=== PATIENT | male | born 1960 | race Caucasian/White ===

== ENCOUNTER 2016-03-20 15:54 | Inpatient (IN) | payer MEDICAID ==
--- NOTE | 2016-03-20 16:32 | ED Physician Chart ---
Chief Complaint/HPI - Patient Information Date Seen:: 03/20/16 Time Seen:: 16:10 Chief Complaint:: generalized weakness History of Present Illness:: patient got out of detention 2 hr ago. Doesn't remember why he was in detention but denies alcohol consumption. Complains of generalized weakness. Homeless for last two years. Non-compliant with high blood pressure medication. Allergies:: Allergies Allergy/AdvReac Type Severity Reaction Status Date / Time MDX Nkda - No Known Drug Allergy Verified 04/04/15 08:06 Allergies [Nkda - No Known Drug Allergies] Vitals:: Vital Signs - 8 hr 03/20/16 16:10 Temp 98.2 F HR 112 RR 16 BP 189/113 O2 Sat % 95 Historian:: Patient, EMS Review:: Nurse's Note Reviewed Review of Systems - Review of Systems General/Constitutional: No fever, No chills, Weakness Skin: No skin lesions Head: No headache Eyes: No loss of vision ENT: No earache Neck: No neck pain Cardio Vascular: No chest pain, No palpitations Pulmonary: No SOB GI: No nausea, No vomiting G/U: No dysuria Musculoskeletal: No bone or joint pain, No back pain Endocrine: No polyuria Hematopoietic: No lymphadenopathy Allergic/Immuno: Urticaria, No urticaria Neurological: No headache Past Medical History - Past Medical History Past Medical History: HTN, DM Family History: None Social History: Smoker, No Alcohol Surgical History: None Medication: None Family Medical History - Family Member Mother History Unknown: Yes Ethnicity: Non- Living Status: Unknown Physical Exam - Physical Examination General/Constitutional: No distress Other Gen/Cons comments:: mild chronically ill appearing Head: Atraumatic Eyes: Lids, conjuctiva normal Skin: Nl inspection ENMT: External ears, nose nl, Nasal exam nl Neck: No nuchal rigidity Other Respiratory comments:: diffuse expiratory wheezing Cardio Vascular: RRR, No murmur, gallop, rubs GI: No tenderness/rebounding/guarding : No CVA tenderness Extremities: No tenderness or effusion Neuro/Psych: Alert/oriented Misc: Normal back Labs/Radiology/EKG Results - Lab Results Results: Laboratory Results - last 24 hr 03/20/16 03/20/16 03/20/16 17:02 17:02 17:02 WBC 14.1 H D RBC 5.68 Hgb 14.9 Hct 45.6 MCV 80.3 MCH 26.3 MCHC Differential 32.7 RDW 14.0 Plt Count 336 MPV 8.6 Neutrophils % 86.0 H Lymphocytes % 8.3 L Monocytes % 4.8 Eosinophils % 0.7 Basophils % 0.2 Sodium 139 Potassium 4.2 Chloride 107 Carbon Dioxide 25.4 Anion Gap 10.8 BUN 29 H Creatinine 1.6 H Est GFR ( Amer) 58.2 Est GFR (Non-Af Amer) 48.1 BUN/Creatinine Ratio 18.1 Glucose 136 H Calcium 8.9 Magnesium 2.2 B-Natriuretic Peptide 613.0 H Ethyl Alcohol 03/20/16 17:02 WBC RBC Hgb Hct MCV MCH MCHC Differential RDW Plt Count MPV Neutrophils % Lymphocytes % Monocytes % Eosinophils % Basophils % Sodium Potassium Chloride Carbon Dioxide Anion Gap BUN Creatinine Est GFR ( Amer) Est GFR (Non-Af Amer) BUN/Creatinine Ratio Glucose Calcium Magnesium B-Natriuretic Peptide Ethyl Alcohol < 10 - Radiology Results Results: CXR: pulmonary congestion - EKG Interpretations Rhythm: sinus tach Johnson: normal Rate: 111 Assessment - Assessment General Assessment: 30 minutes critical care time ED Septic Shock - . Is Septic Shock (SBP<90, OR Lactate>4 mmol\L) present?: No - <6hrs of presentation: Vital Signs: Vital Signs - 8 hr 03/20/16 16:10 Temp 98.2 F HR 112 RR 16 BP 189/113 O2 Sat % 95 Reassessment (Disposition) - Reassessment Reassessment Condition:: Improved - Diagnosis Diagnosis:: congestive heart failure; hypertension - Patient Disposition Admitted to:: Telemetry Spoke to:: Micah Del Castillo Admitting Medical Physician:: Micah Del Castillo Condition at Disposition:: Unchanged
[2016-03-20 17:10] LABS: % BASOPHILS 0.2 % (0.0-2.0); % EOSINOPHILS 0.7 % (0.0-5.0); % LYMPHOCYTES 8.3 % (20.0-50.0); % MONOCYTES 4.8 % (2.0-10.0); HEMATOCRIT 45.6 % (39.0-49.0); HEMOGLOBIN 14.9 gm/dL (13.2-17.3); MEAN CELL VOLUME 80.3 fl (80-99); MEAN CORPUSCULAR HEMOGLOBIN 26.3 pg (26.0-30.0); MEAN CORPUSCULAR HGB CONC 32.7 pg (28.0-36.0); MEAN PLATELET VOLUME 8.6 fl; NEUTROPHILE ABSOLUTE 12.1 Th/cmm (1.8-8.0); PLATELET COUNT 336 Th/cmm (150-400); RED BLOOD COUNT 5.68 Mil/cmm (4.30-5.70)
[2016-03-20 17:17] LABS: WHITE BLOOD COUNT 14.1 Th/cmm (4.8-10.8)
[2016-03-20 17:20] LABS: ANION GAP 10.8 (7.0-16.0); BUN/CREATININE RATIO 18.1; CALCIUM SERUM 8.9 mg/dL (8.6-10.3); CARBON DIOXIDE 25.4 mEq/L (21.0-31.0); CREATININE - SERUM 1.6 mg/dL (0.7-1.3); MAGNESIUM 2.2 mg/dL (1.9-2.7); POTASSIUM SERUM 4.2 mEq/L (3.5-5.1)
[2016-03-20] MEDS ORDERED: Albuterol Nebulizer 2.5mg/3mL HHN ONE (19:22)
[2016-03-20] MEDS ORDERED: Ipratropium Neb 0.5 mg/2.5 mL UD HHN ONE (19:23)
[2016-03-20] MEDS ORDERED: NITROGLYCERIN SPRAY 4.9 GM SL STA (20:05)
[2016-03-20] MEDS ORDERED: Albuterol/Ipratropium Neb 3 ML AERS HHN ONE (20:07)
[2016-03-20] MEDS ORDERED: Albuterol Nebulizer 2.5mg/3mL HHN STA (20:48)
[2016-03-20] MEDS ORDERED: Ipratropium Neb 0.5 mg/2.5 mL UD HHN STA (20:48)
[2016-03-20 21:05] LABS: URINE BILIRUBIN NEGATIVE (NEGATIVE); URINE BLOOD NEGATIVE (NEGATIVE); URINE COLOR YELLOW; URINE GLUCOSE (UA) NEGATIVE (NEGATIVE); URINE KETONE NEGATIVE (NEGATIVE); URINE PH 5.5; URINE PROTEIN 100 mg/dL (NEGATIVE); URINE UROBILINOGEN 0.2 E.U./dL (0.2 - 1.0)
[2016-03-20 21:06] LABS: URINE BACTERIA NONE SEEN /hpf (NONE SEEN); URINE EPITHELIAL CELLS NONE SEEN /lpf (FEW); URINE RBC NONE SEEN /hpf (0-5); URINE WBC NONE SEEN /hpf (0-5)
[2016-03-20 22:25] LABS: AMPHETAMINE URINE POSITIVE (NEGATIVE); BARBITURATES URINE NEGATIVE (NEGATIVE)
--- NOTE | 2016-03-20 22:29 | Admit Criteria Form ---
Admit Criteria Forms - Admit Criteria Diagnosis: HYPERTENSION Clinical Indications for Admission to Inpatient Care ( Place "X" for any and all applicable criteria): Admission is indicated for ANY ONE of the following(1)(2)(3)(4): [ ]I. Hypertensive emergency, with evidence of acute and progressing target organ disease as indicated by ANY ONE of the following: [ ]a) Hypertensive encephalopathy (eg, confusion, altered mental status) [ ]b) Cerebral infarction [ ]c) Intracranial hemorrhage [ ]d) Myocardial ischemia or infarction [ ]e) Pulmonary edema [ ]f) Aortic dissection [ ]g) Seizure [ ]h) Acute renal insufficiency [ ]i) Papilledema [ ]j) Microangiopathic hemolytic anemia [ ]II. Adrenergic crisis (eg, severe hypertension due to pheochromocytoma crisis, cocaine or amphetamine intoxication, or clonidine withdrawal) [X]III. Severe hypertension (SBP greater than 180 mmHg or DBP greater than 110 mmHg or greater than the 95th percentile for age, gender, and height in pediatric patients) that cannot be controlled (eg, to SBP less than 160 mmHg and DBP less than 100 mmHg in adults) by treatment with oral medication in emergency department or observation care Extended stay beyond goal length of stay may be needed for(11)(12)(13): [ ]a) Persistent hypertensive encephalopathy [ ]b) Continuation of pulmonary edema [ ]c) Recurring or persistent severe hypertension [ ]d) Target organ damage (eg, angina, stroke, aortic dissection) [ ]e) Associated renal insufficiency The original [employer] content created by [employer] has been revised. The portions of the content which have been revised are identified through the use of italic text or in bold, and [facility] has neither reviewed nor approved the modified material. All other unmodified content is copyright [facility] Please see references footnoted in the original [facility] edition 2016 Admit Criteria Met?: Yes
[2016-03-20 23:59] VITALS: BP 150/110
[2016-03-21] MEDS: cefTRIAXone 1 GM in Sodium Chloride 0.9% 50 ML IV SCH (00:42)
[2016-03-21 06:40] LABS: % EOSINOPHILS 0.8 % (0.0-5.0); % LYMPHOCYTES 10.8 % (20.0-50.0); % MONOCYTES 4.9 % (2.0-10.0); % NEUTROPHILS 82.5 % (40.0-80.0); HEMATOCRIT 43.2 % (39.0-49.0); HEMOGLOBIN 14.3 gm/dL (13.2-17.3); MEAN CELL VOLUME 80.3 fl (80-99); MEAN CORPUSCULAR HEMOGLOBIN 26.6 pg (26.0-30.0); MEAN CORPUSCULAR HGB CONC 33.2 pg (28.0-36.0); MEAN PLATELET VOLUME 8.6 fl; NEUTROPHILE ABSOLUTE 9.7 Th/cmm (1.8-8.0); PLATELET COUNT 293 Th/cmm (150-400); RED BLOOD COUNT 5.38 Mil/cmm (4.30-5.70); RED CELL DISTRIBUTION WIDTH 13.9 % (11.5-20.0); WHITE BLOOD COUNT 11.8 Th/cmm (4.8-10.8)
[2016-03-21 06:45] LABS: ANION GAP 12.8 (7.0-16.0); BUN - UREA NITROGEN 27 mg/dL (7-25); CALCIUM SERUM 8.5 mg/dL (8.6-10.3); CARBON DIOXIDE 23.5 mEq/L (21.0-31.0); CHLORIDE 108 mEq/L (98-107); CREATININE - SERUM 1.5 mg/dL (0.7-1.3); GLUCOSE 137 mg/dL (70-105); POTASSIUM SERUM 4.3 mEq/L (3.5-5.1); SODIUM SERUM 140 mEq/L (136-145)
[2016-03-21 06:51] LABS: MAGNESIUM 2.2 mg/dL (1.9-2.7); URIC ACID 7.8 mg/dL (4.4-7.6)
[2016-03-21] MEDS: Albuterol Nebulizer 2.5mg/3mL HHN PRN ×3 (09:21→14:25)
[2016-03-21] MEDS: Enoxaparin 60 mg/0.6 mL 0.6mL Syr SUBQ SCH ×2 (12:54→20:53)
--- NOTE | 2016-03-21 13:23 | Diagnostic Imaging Report ---
Renal ultrasound HISTORY: Abnormal renal function test The right kidney is normal in size (10.3 x 4.9 x 5.6 cm). No focal lesions or hydronephrosis. The left kidney measures 12.2 x 5.5 x 5.6 cm. No focal lesions. No hydronephrosis. The exam of the urinary bladder demonstrates what appears to be an approximate 4.0 x 2.3 x 3.6 cm heterogeneous density encroaching on the floor region presumably related to enlarged prostate gland. In addition, an approximate 2.0 cm nonmobile density is noted along the posterior wall of the bladder. Etiology uncertain. A mucosal lesion cannot be excluded. IMPRESSION: 1. No focal renal lesions or hydronephrosis 2. Findings suggesting enlarged prostate gland with encroachment on the floor the urinary bladder 3. Approximate 2.0 cm nonmobile density that appears to be situated along the posterior wall of the bladder. Etiology uncertain. Mucosal lesion cannot be definitely excluded. Follow-up is recommended.
--- NOTE | 2016-03-21 13:24 | Diagnostic Imaging Report ---
Portable chest x-ray HISTORY hypertension The heart is enlarged. There is density in the right lower hemithorax. A pleural effusion cannot be excluded. Findings may be associated with congestive heart failure. Suggestion of a small left pleural effusion and haziness in the left lower lobe. IMPRESSION: 1. Cardiomegaly with suggestion of bilateral pleural effusions as noted above. Changes may be related to congestive heart failure. Underlying pneumonia cannot be excluded. Clinical correlation is needed.
--- NOTE | 2016-03-21 20:38 | Cardiology ---
The patient of Dr. Micah Del Castillo. M-MODE ECHOCARDIOGRAM: Mitral valve, anterior leaflet of the mitral valve shows decreased excursion, EF velocity. Posterior leaflet of mitral valve shows decreased excursion. Left ventricular posterior wall shows increased thickness, decreased excursion. Interventricular septum shows increased thickness, decreased excursion. There is hypertrophy of the left ventricle. Ejection fraction 20%. Left atrium enlarged at 4.8 cm. Aortic root shows normal dimension and normal excursion of aortic leaflets. CONCLUSION: Cardiomyopathy, ejection fraction 20%, hypertrophy of the left ventricle, left atrial enlargement. 2D ECHO: Long-axis view shows enlarged left ventricular cavity with decreased ejection fraction, hypertrophy of the left ventricle. Left atrium enlarged. Aortic root shows normal dimension, normal excursion of aortic leaflets. Short-axis view of mitral valve normal. Short-axis view of aortic valve normal. Apical four-chamber view shows enlarged left ventricular cavity with decreased ejection fraction, hypertrophy of the left ventricle, and left atrium, enlarged right ventricular cavity, right atrium normal, no pericardial effusion. CONCLUSION: Hypertrophy of the left ventricle, cardiomyopathy, ejection fraction 30%, and left atrial enlargement. Doppler study shows prominent area consistent with poor compliance of left ventricle. Trace tricuspid regurgitation and trace mitral regurgitation, moderate pulmonary regurgitation. JOB# [id number]
[2016-03-22] MEDS: cefTRIAXone 1 GM in Sodium Chloride 0.9% 50 ML IV SCH ×2 (00:59→23:07)
--- NOTE | 2016-03-22 02:39 | Consultation ---
ATTENDING PHYSICIAN: Micah Del Castillo M.D. REASON FOR CONSULTATION: Elevated BUN and creatinine. HISTORY OF PRESENT ILLNESS: The patient is a 55-year-old male with a history of diabetes, hypertension and homelessness, who just got out of [facility], came into the Emergency Room complaining of generalized weakness and shortness of breath. He was found to have congestive heart failure exacerbation and hypertension out of control with cellulitis, so he is admitted. His BUN and creatinine were found to be elevated, so I am called in consultation, as I am covering for Dr. Timothy Gaines. PAST MEDICAL HISTORY: Significant for diabetes and hypertension, he does not know how long. FAMILY HISTORY: Noncontributory. SOCIAL HISTORY: The patient uses drugs, smokes cigarettes, does not drink. ALLERGIES: No known drug allergies. MEDICATIONS: The patient was not taking any medications. REVIEW OF SYSTEMS: As in History of Present Illness. All other systems reviewed and found to be negative. PHYSICAL EXAMINATION: VITAL SIGNS: His blood pressure is 189/113, temperature is 98.2, pulse 112, respirations 16. HEENT: Normocephalic, atraumatic. Pupils are equal, round, reacting to light and accommodation. Extraocular movements are intact. CARDIOVASCULAR: S1, S2 head. Tachycardic. LUNGS: Bilateral expiratory wheezes. ABDOMEN: Soft. No hepatosplenomegaly. EXTREMITIES: There is no cyanosis, clubbing. There is 1+ pedal edema. NEUROLOGIC: Cranial nerves II through XII are intact with no focal deficit. LABORATORY DATA: WBC 11.8, hemoglobin 14.3, hematocrit 43.2, platelet count is 293,000. Sodium 140, potassium 4.3, chloride 108, bicarbonate 23, BUN 27, creatinine 1.5, glucose 137, uric acid 7.8, calcium 8.5, magnesium 2.2, troponin 0.15. Urinalysis is clear. Toxicology screen positive for amphetamines. Alcohol is less than 10. ASSESSMENT AND PLAN: 1. This is most likely acute renal failure versus there is a possibility of underlying chronic renal failure due to diabetes. We will check 24-hour urine and renal ultrasound, give dopamine if heart rate comes down. 2. Diabetes mellitus, cover with sliding scale insulin. 3. Congestive heart failure exacerbation versus chronic obstructive pulmonary disease exacerbation, on breathing treatments and diuretics. 4. Hypertension. Continue antihypertensive medications. Thank you very much for the privilege of consulting on your patient, Dr. Del Castillo. JOB# [id number]
[2016-03-22 07:12] LABS: % BASOPHILS 0.2 % (0.0-2.0); % EOSINOPHILS 0.9 % (0.0-5.0); % LYMPHOCYTES 13.4 % (20.0-50.0); % MONOCYTES 6.5 % (2.0-10.0); HEMATOCRIT 46.1 % (39.0-49.0); HEMOGLOBIN 15.1 gm/dL (13.2-17.3); MEAN CELL VOLUME 80.8 fl (80-99); MEAN CORPUSCULAR HEMOGLOBIN 26.5 pg (26.0-30.0); MEAN CORPUSCULAR HGB CONC 32.8 pg (28.0-36.0); MEAN PLATELET VOLUME 9.1 fl; NEUTROPHILE ABSOLUTE 10.8 Th/cmm (1.8-8.0); PLATELET COUNT 340 Th/cmm (150-400); WHITE BLOOD COUNT 13.6 Th/cmm (4.8-10.8)
--- NOTE | 2016-03-22 07:18 | Consultation ---
Covering for Dr. Nolen. IDENTIFYING INFORMATION: The patient is a 55-year-old male. HISTORY OF PRESENT ILLNESS: ____ of hypertension. He has severe hypertension. When I talked to the patient, he was not a very reliable historian; however, he denies any prior psychiatric treatment. He denies feeling depressed. He was unable to tell me the date. He felt he was 56 years of age. He was not sure of the exact date of his birthday. He reports he sleeps well, eats well. Denies any anxiety or depression. He denies any current substance abuse, though he reports he used to use alcohol and drugs in the past, but he quit long time ago, unable to give me more detailed information. PAST PSYCHIATRIC HISTORY: No prior psychiatric treatment. Prior history of substance abuse, but he has quit long time ago. No prior suicide attempt. Never been on psychotropic medications. MEDICAL HISTORY: Deferred to the medical doctor. FAMILY AND SOCIAL HISTORY: The patient reports he is single, never , no children. He reports that he lives by himself and that there is no family history of psychotic disorder or substance abuse. He reports he has [employer] school education. He used to work as a aircraft armament mechanic. MENTAL STATUS EXAMINATION: The patient was alert. He reported he felt terrible. He knows this is the weekend, but he is not sure exactly what month, what year, where he is, why he is here. Unable to test his memory because he was feeling bad and was uncooperative. His insight and judgment are questionable at this stage. He denies any intent to harm himself, not feeling paranoid, hallucinations or paranoia. IMPRESSION: AXIS I: Rule out delirium secondary to his medical condition versus cognitive disorder, not otherwise specified. PLAN: I would recommend to the patient that probably his medical condition will improves as his psychiatric condition improves. His confusion will improve as his medical condition improves. The patient needs followup with the psychiatrist upon discharge. However, if he gets agitated, he can use the Risperdal 0.5 mg twice a day as needed. So far, he has not been reported to be agitated. Thank you very much for allowing me to participate in the care of this most interesting gentleman. JOB# [id number]
[2016-03-22 07:49] LABS: ANION GAP 10.6 (7.0-16.0); BUN - UREA NITROGEN 29 mg/dL (7-25); BUN/CREATININE RATIO 20.7; CALCIUM SERUM 8.7 mg/dL (8.6-10.3); CARBON DIOXIDE 24.6 mEq/L (21.0-31.0); CHLORIDE 110 mEq/L (98-107); CREATININE - SERUM 1.4 mg/dL (0.7-1.3); GLUCOSE 121 mg/dL (70-105); POTASSIUM SERUM 4.2 mEq/L (3.5-5.1); SODIUM SERUM 141 mEq/L (136-145)
[2016-03-22] MEDS: Albuterol Nebulizer 2.5mg/3mL HHN PRN (08:53)
[2016-03-22] MEDS: Azithromycin 500 MG in Sodium Chloride 0.9% 250 ML IV SCH (08:59)
[2016-03-22] MEDS: Enoxaparin 60 mg/0.6 mL 0.6mL Syr SUBQ SCH ×2 (09:02→23:08)
[2016-03-22] MEDS ORDERED: Albuterol Nebulizer 2.5mg/3mL HHN PRN (09:21)
--- NOTE | 2016-03-22 10:15 | Diagnostic Imaging Report ---
Portable chest x-ray HISTORY: Shortness of breath, congestive heart failure Compared with prior exam of 03/21/2016, the heart remains enlarged. Evidence of persistent bilateral pleural effusions. IMPRESSION: 1. No change in cardiomegaly with evidence of bilateral pleural effusions probably associated with congestive heart failure.
[2016-03-22 12:28] LABS: ABG SOURCE Arterial; ALLEN TEST YES; BE(B) 1.3 mmol/L (-3.0-3.0); HCO3 27.6 mmol/L (20.0-26.0); pH 7.35 (7.35-7.45)
[2016-03-22 12:29] LABS: CRITICAL VALUES REPORTED BY SH; FIO2 28
[2016-03-22 14:15] LABS: TOTAL PROTEIN 24 HR URINE 430.5 mg/24 hr (0-165)
[2016-03-22] MEDS: Albuterol Nebulizer 2.5mg/3mL HHN SCH (14:42)
--- NOTE | 2016-03-22 17:40 | General Progress Note ---
Subjective - Review of Systems Service Date: 03/22/16 Subjective: Patient seen and examined feels better sob better family was at the bedside pt denied chest pain or dizziness or palpitation or any other complaints Objective - Results Result Diagrams: 03/22/16 05:48 03/22/16 05:48 Recent Labs: Laboratory Last Values WBC 13.6 Th/cmm (4.8-10.8) H 03/22/16 05:48 RBC 5.70 Mil/cmm (4.30-5.70) 03/22/16 05:48 Hgb 15.1 gm/dL (13.2-17.3) 03/22/16 05:48 Hct 46.1 % (39.0-49.0) 03/22/16 05:48 MCV 80.8 fl (80-99) 03/22/16 05:48 MCH 26.5 pg (26.0-30.0) 03/22/16 05:48 MCHC Differential 32.8 pg (28.0-36.0) 03/22/16 05:48 RDW 14.0 % (11.5-20.0) 03/22/16 05:48 Plt Count 340 Th/cmm (150-400) 03/22/16 05:48 MPV 9.1 fl 03/22/16 05:48 Neutrophils % 79.0 % (40.0-80.0) 03/22/16 05:48 Lymphocytes % 13.4 % (20.0-50.0) L 03/22/16 05:48 Monocytes % 6.5 % (2.0-10.0) 03/22/16 05:48 Eosinophils % 0.9 % (0.0-5.0) 03/22/16 05:48 Basophils % 0.2 % (0.0-2.0) 03/22/16 05:48 Specimen Source Arterial 03/22/16 11:58 Sample Site Right Radial 03/22/16 11:58 pH 7.35 (7.35-7.45) 03/22/16 11:58 pCO2 50.0 mmHg (35.0-45.0) H 03/22/16 11:58 pO2 72.0 mmHg (80.0-100.0) L 03/22/16 11:58 HCO3 27.6 mmol/L (20.0-26.0) H 03/22/16 11:58 Base Excess 1.3 mmol/L (-3.0-3.0) 03/22/16 11:58 O2 Saturation 93.0 % (92.0-100.0) 03/22/16 11:58 Alexis Test YES 03/22/16 11:58 Vent Rate NA 03/22/16 11:58 Inspired O2 28 03/22/16 11:58 Tidal Volume NA 03/22/16 11:58 PEEP NA 03/22/16 11:58 Pressure (ins/psv/peep) NA 03/22/16 11:58 Critical Value SH 03/22/16 11:58 Sodium 141 mEq/L (136-145) 03/22/16 05:48 Potassium 4.2 mEq/L (3.5-5.1) 03/22/16 05:48 Chloride 110 mEq/L (98-107) H 03/22/16 05:48 Carbon Dioxide 24.6 mEq/L (21.0-31.0) 03/22/16 05:48 Anion Gap 10.6 (7.0-16.0) 03/22/16 05:48 BUN 29 mg/dL (7-25) H 03/22/16 05:48 Creatinine 1.4 mg/dL (0.7-1.3) H 03/22/16 05:48 Est GFR ( Amer) > 60.0 ml/min (>90) 03/22/16 05:48 Est GFR (Non-Af Amer) 56.1 ml/min 03/22/16 05:48 BUN/Creatinine Ratio 20.7 03/22/16 05:48 Glucose 121 mg/dL (70-105) H 03/22/16 05:48 Uric Acid 7.8 mg/dL (4.4-7.6) H 03/21/16 05:40 Calcium 8.7 mg/dL (8.6-10.3) 03/22/16 05:48 Magnesium 2.2 mg/dL (1.9-2.7) 03/21/16 05:40 Troponin I 0.12 ng/mL (0.01-0.05) H* D 03/21/16 13:44 B-Natriuretic Peptide 857.0 pg/mL (5.0-100.0) H 03/22/16 05:48 Urine Source CLEAN C 03/20/16 20:10 Urine Color YELLOW 03/20/16 20:10 Urine Clarity CLEAR (CLEAR) 03/20/16 20:10 Urine pH 5.5 03/20/16 20:10 Ur Specific [place] 1.025 (1.005-1.030) 03/20/16 20:10 Urine Protein 100 mg/dL (NEGATIVE) H 03/20/16 20:10 Urine Glucose (UA) NEGATIVE mg/dL (NEGATIVE) 03/20/16 20:10 Urine Ketones NEGATIVE mg/dL (NEGATIVE) 03/20/16 20:10 Urine Blood NEGATIVE (NEGATIVE) 03/20/16 20:10 Urine Nitrate NEGATIVE (NEGATIVE) 03/20/16 20:10 Urine Bilirubin NEGATIVE (NEGATIVE) 03/20/16 20:10 Urine Urobilinogen 0.2 E.U./dL (0.2 - 1.0) 03/20/16 20:10 Ur Leukocyte Esterase NEGATIVE (NEGATIVE) 03/20/16 20:10 Urine RBC NONE SEEN /hpf (0-5) 03/20/16 20:10 Urine WBC NONE SEEN /hpf (0-5) 03/20/16 20:10 Ur Epithelial Cells NONE SEEN /lpf (FEW) 03/20/16 20:10 Urine Bacteria NONE SEEN /hpf (NONE SEEN) 03/20/16 20:10 U Random Total Protein 41.0 mg/dL 03/22/16 12:00 Urine Collection Time 24 hours 03/22/16 12:00 Urine Total Volume 1050 ml 03/22/16 12:00 U Tot Protein 24h, Calc 430.5 mg/24 hr (0-165) H 03/22/16 12:00 Urine Opiates Screen NEGATIVE (NEGATIVE) 03/20/16 20:10 Ur Barbiturates Screen NEGATIVE (NEGATIVE) 03/20/16 20:10 Ur Phencyclidine Scrn NEGATIVE (NEGATIVE) 03/20/16 20:10 Amphetamines Screen POSITIVE (NEGATIVE) H 03/20/16 20:10 U Methamphetamines Scrn POSITIVE (NEGATIVE) H 03/20/16 20:10 U Benzodiazepines Scrn NEGATIVE (NEGATIVE) 03/20/16 20:10 U Cocaine Metab Screen NEGATIVE (NEGATIVE) 03/20/16 20:10 U Cannabinoids Screen NEGATIVE (NEGATIVE) 03/20/16 20:10 Ethyl Alcohol < 10 mg/dL (0-10) 03/20/16 17:02 - Physical Exam Vitals and I&O: Vital Signs Temp 97.3 F 03/22/16 16:00 Pulse 91 03/22/16 17:15 Resp 17 03/22/16 16:00 BP 181/122 03/22/16 17:15 Pulse Ox 92 03/22/16 16:00 Intake & Output 03/21/16 03/22/16 03/22/16 18:59 06:59 18:59 Intake Total 6500 360 Output Total 300 Balance 6500 60 Weight (lbs) 119.93 kg Intake: Oral 6500 360 Output: Urine 300 Other: # Voids 5 # Bowel Movements 0 0 Active Medications: Current Medications Albuterol Sulfate (Albuterol 2.5mg/3ml Neb Ud) 2.5 mg HHN Q4HRT [facility] Stop: 05/21/16 10:59 Last Admin: 03/22/16 14:42 Dose: 2.5 mg Albuterol Sulfate (Albuterol 2.5mg/3ml Neb Ud) 2.5 mg HHN Q2HRT PRN PRN Reason: Shortness of Breath Stop: 05/21/16 09:20 Last Admin: 03/22/16 10:32 Dose: 2.5 mg Albuterol/Ipratropium (Duoneb Neb) 3 ml HHN [id number] [facility] Stop: 05/21/16 18:59 Aspirin (Ecotrin) 81 mg PO DAILY [facility] Stop: 05/20/16 08:59 Last Admin: 03/22/16 09:02 Dose: 81 mg Budesonide (Pulmicort) 0.5 mg HHN BIDRT [facility] Stop: 05/21/16 18:59 Clonidine HCl (Catapres) 0.1 mg PO Q6H PRN PRN Reason: SBP > 160 Stop: 05/19/16 21:44 Last Admin: 03/22/16 17:14 Dose: 0.1 mg Enoxaparin Sodium (Lovenox) 120 mg SUBQ Q12HR [facility] Stop: 05/20/16 11:59 Last Admin: 03/22/16 09:02 Dose: 120 mg Furosemide (Lasix) 20 mg IVP DAILY [facility] Stop: 05/22/16 08:59 Ceftriaxone Sodium 1 gm/ (Sodium Chloride) 50 mls @ 100 mls/hr IV Q24H [facility] Stop: 05/19/16 22:59 Last Admin: 03/22/16 00:59 Dose: 100 mls/hr Azithromycin 500 mg/ Sodium (Chloride) 250 mls @ 250 mls/hr IV Q24HR [facility] Stop: 05/21/16 07:44 Last Admin: 03/22/16 08:59 Dose: 250 mls/hr Losartan Potassium (Cozaar) 50 mg PO DAILY [facility] Stop: 05/20/16 17:59 Last Admin: 03/22/16 09:02 Dose: 50 mg Metoprolol Tartrate (Lopressor) 50 mg PO BID [facility] Stop: 05/20/16 16:59 Last Admin: 03/22/16 17:15 Dose: 50 mg General: Alert Cardiovascular: Regular rate Lungs: Other (rales noted) Abdomen: Soft Extremities: Other (bilateral feet onychomycosis noted) Assessment/Plan - Problem List Patient Problems: All Active Problems GENERALIZED WEAKNESS (Acute ~03/20/16) Diabetes mellitus (Acute) E11.9 High cholesterol (Acute) E78.0 Homeless (Acute) Z59.0 Hypertensive encephalopathy (Acute) I67.4 Severe hypertension (Acute) I10 Unstable angina (Acute) - Assessment Assessment: CHF ( systolic heart failure) Cardiomyopathy Methamphetamine abuse COPD exacerbation Obesity Elevated troponin possibly related to CHF HTN - Plan Plan: IV Lasix Beta kendall Lovenox Frequent HHN Oxygen IV rocephine Solumedrol Monitor vitals Highly advised to stop cigarette and Methamphetamine use Cardiology and Pulmonary following Follow up chest xray and labs in am Family was updated on pts condition Plan of care discussed with patient and nursing staff
--- NOTE | 2016-03-22 19:22 | Consultation ---
The patient is a patient of Dr. Del Castillo. HISTORY AND PHYSICAL: This is a 55-year-old male patient who was brought to the hospital because of generalized weakness. The patient left the custodial about 2 hours ago. The patient does not remember why he was in the custodial. The patient does have minimal swelling in both lower extremities and minimal shortness of breath. OBJECTIVE: VITAL SIGNS: Blood pressure 120/70, pulse 100 and respirations 28. HEAD: Normocephalic. No lumps or bumps. EYES: Pupils equal, reactive to light. Fundi show AV nicking, sclerae white, conjunctivae pink. NECK: Carotid 2+. Normal upstroke. JVD 10 cm above the sternal angle. Thyroid not palpable. Lymph nodes not palpable. CHEST: Shows increased AP diameter. No kyphosis or scoliosis. LUNGS: Bilateral rales. Decreased breath sounds in both the bases. HEART: PMI sixth intercostal space with [id number] line. S1, S2, S3, S4, soft systolic murmur. ABDOMEN: Soft, hepatojugular reflux, positive bowel sounds active. RECTAL: Prostate enlarged. EXTREMITIES: Peripheral pulses 1+, pedal edema 2+. CLINICAL IMPRESSION: Congestive heart failure, systolic dysfunction, cardiomyopathy, methamphetamine addict. Diabetes mellitus type 2, hypertension and diabetic CKD, stage III. PLAN: The patient to be started on beta kendall, diuretics, preload, afterload reduction. The patient's echocardiogram showed ejection fraction of 20%. JOB# [id number]
[2016-03-22] MEDS: Budesonide 0.5 Mg/2 mL Ud HHN SCH (19:38)
[2016-03-22] MEDS: Albuterol/Ipratropium Neb 3 ML AERS HHN SCH (19:38)
[2016-03-23] MEDS: Albuterol/Ipratropium Neb 3 ML AERS HHN SCH ×4 (06:57→20:37)
[2016-03-23] MEDS: Budesonide 0.5 Mg/2 mL Ud HHN SCH ×2 (06:58→20:38)
[2016-03-23 07:53] LABS: HEMATOCRIT 44.2 % (39.0-49.0); HEMOGLOBIN 14.5 gm/dL (13.2-17.3); MEAN CELL VOLUME 80.3 fl (80-99); MEAN CORPUSCULAR HEMOGLOBIN 26.4 pg (26.0-30.0); MEAN CORPUSCULAR HGB CONC 32.9 pg (28.0-36.0); MEAN PLATELET VOLUME 9.3 fl; PLATELET COUNT 329 Th/cmm (150-400); RED BLOOD COUNT 5.51 Mil/cmm (4.30-5.70); RED CELL DISTRIBUTION WIDTH 14.2 % (11.5-20.0); WHITE BLOOD COUNT 13.6 Th/cmm (4.8-10.8)
[2016-03-23 08:27] LABS: ALB/GLOB RATIO 1.2 (1.0-1.8); ALKALINE PHOSPHATASE 122 U/L (34-104); ANION GAP 10.1 (7.0-16.0); BILIRUBIN,TOTAL 0.6 mg/dL (0.3-1.0); BUN - UREA NITROGEN 33 mg/dL (7-25); BUN/CREATININE RATIO 23.6; CALCIUM SERUM 8.8 mg/dL (8.6-10.3); CARBON DIOXIDE 25.9 mEq/L (21.0-31.0); CHLORIDE 106 mEq/L (98-107); CREATININE - SERUM 1.4 mg/dL (0.7-1.3); GLUCOSE 140 mg/dL (70-105); SGOT 29 U/L (13-39); SGPT/ALT 68 U/L (7-52); SODIUM SERUM 138 mEq/L (136-145)
[2016-03-23 08:28] LABS: TSH 1.24 uIU/ml (0.34-5.60)
--- NOTE | 2016-03-23 08:56 | Diagnostic Imaging Report ---
CT scan of the chest without intravenous contrast HISTORY: Shortness of breath Total DLP equals 335 CTDI equals 9.4 Axial sections were obtained from a level above the clavicles down to level below the diaphragm. The heart is enlarged. Pericardial effusion is noted. Normal-sized lymph nodes are seen within the mediastinum. There are bilateral pleural effusions (right greater than left). Extensive consolidation noted in the right and left lower lobe regions. Changes may be associated with congestive heart failure. Underlying pneumonia cannot be excluded. IMPRESSION: 1. Cardiomegaly with evidence of a pericardial effusion 2. Bilateral pleural effusions (right greater than left). 3. Bilateral pulmonary parenchymal changes within the lower lobes. The findings may be associated with congestive heart failure. Underlying pneumonia cannot be excluded. Clinical correlation is needed.
[2016-03-23] MEDS ORDERED: NIFEdipine 30 mg ER Tab PO SCH (09:00)
[2016-03-23] MEDS: Azithromycin 500 MG in Sodium Chloride 0.9% 250 ML IV SCH (09:16)
--- NOTE | 2016-03-23 09:26 | Progress Notes ---
Case was discussed with staff of the patient, reviewed records. The patient was found to have urine drug screen positive for amphetamines and that may explain the increase in blood pressure. He also was reported to be somewhat paranoid. I discussed that with the patient. The patient is in denial that he was abusing any drugs; however, he does have a history. Anyway, he reports he is feeling better today. He denies any current intent to harm himself or anybody. He denies any auditory or visual hallucination or paranoia. Today, he is compliant with the medication with no side effects, no sedation, no nausea, no extrapyramidal symptoms. The patient needs followup with the psychiatrist upon discharge and a ____ program. Sleeping well, eating well. Seems to be much calmer and cooperative. Thank you very much for allowing me to participate in the care of this most interesting gentleman. JOB# [id number]
[2016-03-23 09:33] LABS: ABG SOURCE Arterial; ALLEN TEST YES; BE(B) 3.3 mmol/L (-3.0-3.0); HCO3 29.1 mmol/L (20.0-26.0); pH 7.39 (7.35-7.45)
[2016-03-23 09:34] LABS: CRITICAL VALUES REPORTED BY SH; FIO2 21
[2016-03-23] MEDS: Enoxaparin 60 mg/0.6 mL 0.6mL Syr SUBQ SCH ×2 (10:18→21:45)
[2016-03-23 10:53] LABS: NEUTROPHILS 82 % (40-80); PLATELET ESTIMATE ADEQUATE (NORMAL); PLATELET MORPHOLOGY NORMAL (NORMAL); TOTAL CELLS COUNTED 100
[2016-03-23] MEDS: cefTRIAXone 1 GM in Sodium Chloride 0.9% 100 ML IV SCH (13:02)
--- NOTE | 2016-03-23 15:21 | Consultation ---
REASON FOR CONSULTATION: Help patient with shortness of breath. HISTORY OF PRESENT ILLNESS: This is a 55-year-old gentleman "homeless," was just discharged from the nursing home and apparently two days after started having more shortness of breath, coughing and wheezing, subsequently felt extremely weak and came to the hospital for further care and necessary treatment. Apparently, the patient was thought to be in heart failure with possibly pneumonia and I was asked to see this patient for further care and necessary treatment. The patient has had morning coughing, no hemoptysis. No pleuritic chest pain. Lately has got more swollen up, though he says he may loss weight. No wheezing. No hemoptysis does not recall of any fever. PAST MEDICAL HISTORY: History of hypertension, diabetic mellitus, questionable history of snoring and sleep apnea syndrome. ALLERGIES: Nil. SOCIAL HISTORY: Smoking history more than 30-40 pack year smoker, still smokes till prior to coming to the hospital. Alcohol seems to be very heavy. ____ drink a lot, but lately has not been drinking. PAST SURGICAL HISTORY: Noncontributory. PHYSICAL FINDINGS: GENERAL: This is a middle-aged fairly built gentleman, awake, alert, oriented, sitting at the edge of the bed, no respiratory distress. VITAL SIGNS: Temperature is 96, heart rate is 80, respiration rate is low 20s, saturation is 97% on 2 liters of oxygen. HEENT: Examination of the head is essentially unremarkable. Pupils appear to be equal and reacting to light. Conjunctivae are slightly pallor. Oral cavity shows small oropharyngeal hygiene with poor dental hygiene. NECK: Veins are not visualized, lot of ____, cannot see the neck veins. CHEST: Shows diminished air entry. No other adventitious breath sounds with occasional rhonchi. HEART: Regular. ABDOMEN: Slightly protuberant, soft, nontender. LABORATORY DATA: White count is 13.6. ABG shows compensated respiratory acidemia. Electrolytes, creatinine is 1.4, BUN is 27 and the patient's chest x-ray shows huge cardiomegaly with bilateral effusion and a CT of the chest done shows there is moderate effusion and more right than the left with some ____ atelectasis with questionable pneumonia infiltrate. ASSESSMENT: The patient clinically is in acute respiratory failure, most likely this is related to congestive heart failure, cardiomyopathy with bilateral effusion, suspect obstructive sleep apnea syndrome with chronic bronchitis and chronic obstructive pulmonary disease from history of smoking. PLANS AND SUGGESTIONS: We will continue IV Lasix. We will continue aggressive inhalation treatment and we will follow up repeat chest x-ray in a couple of days and see how he does and go from there. JOB# [id number]
--- NOTE | 2016-03-23 20:20 | General Progress Note ---
Subjective - Review of Systems Service Date: 03/23/16 Subjective: Patient seen and examined still have some sob BNP high denied chest pain Objective - Results Result Diagrams: 03/23/16 07:13 03/23/16 07:13 Recent Labs: Laboratory Last Values WBC 13.6 Th/cmm (4.8-10.8) H 03/23/16 07:13 RBC 5.51 Mil/cmm (4.30-5.70) 03/23/16 07:13 Hgb 14.5 gm/dL (13.2-17.3) 03/23/16 07:13 Hct 44.2 % (39.0-49.0) 03/23/16 07:13 MCV 80.3 fl (80-99) 03/23/16 07:13 MCH 26.4 pg (26.0-30.0) 03/23/16 07:13 MCHC Differential 32.9 pg (28.0-36.0) 03/23/16 07:13 RDW 14.2 % (11.5-20.0) 03/23/16 07:13 Plt Count 329 Th/cmm (150-400) 03/23/16 07:13 MPV 9.3 fl 03/23/16 07:13 Neutrophils % 79.0 % (40.0-80.0) 03/22/16 05:48 Lymphocytes % 13.4 % (20.0-50.0) L 03/22/16 05:48 Monocytes % 6.5 % (2.0-10.0) 03/22/16 05:48 Eosinophils % 0.9 % (0.0-5.0) 03/22/16 05:48 Basophils % 0.2 % (0.0-2.0) 03/22/16 05:48 Neutrophils (Manual) 82 % (40-80) H 03/23/16 07:13 Lymphocytes 12 % (20-50) L 03/23/16 07:13 Monocytes 6 % (2-10) 03/23/16 07:13 Platelet Estimate ADEQUATE (NORMAL) 03/23/16 07:13 Platelet Morphology NORMAL (NORMAL) 03/23/16 07:13 RBC Morph Micro Appear NORMAL (NORMAL) 03/23/16 07:13 Specimen Source Arterial 03/23/16 09:00 Sample Site Right Radial 03/23/16 09:00 pH 7.39 (7.35-7.45) 03/23/16 09:00 pCO2 48.0 mmHg (35.0-45.0) H 03/23/16 09:00 pO2 51.0 mmHg (80.0-100.0) L 03/23/16 09:00 HCO3 29.1 mmol/L (20.0-26.0) H 03/23/16 09:00 Base Excess 3.3 mmol/L (-3.0-3.0) H 03/23/16 09:00 O2 Saturation 85.0 % (92.0-100.0) L 03/23/16 09:00 Alexis Test YES 03/23/16 09:00 Vent Rate NA 03/23/16 09:00 Inspired O2 21 03/23/16 09:00 Tidal Volume NA 03/23/16 09:00 PEEP NA 03/23/16 09:00 Pressure (ins/psv/peep) NA 03/23/16 09:00 Critical Value SH 03/23/16 09:00 Sodium 138 mEq/L (136-145) 03/23/16 07:13 Potassium 4.0 mEq/L (3.5-5.1) 03/23/16 07:13 Chloride 106 mEq/L (98-107) 03/23/16 07:13 Carbon Dioxide 25.9 mEq/L (21.0-31.0) 03/23/16 07:13 Anion Gap 10.1 (7.0-16.0) 03/23/16 07:13 BUN 33 mg/dL (7-25) H 03/23/16 07:13 Creatinine 1.4 mg/dL (0.7-1.3) H 03/23/16 07:13 Est GFR ( Amer) > 60.0 ml/min (>90) 03/23/16 07:13 Est GFR (Non-Af Amer) 56.1 ml/min 03/23/16 07:13 BUN/Creatinine Ratio 23.6 03/23/16 07:13 Glucose 140 mg/dL (70-105) H 03/23/16 07:13 Uric Acid 7.8 mg/dL (4.4-7.6) H 03/21/16 05:40 Calcium 8.8 mg/dL (8.6-10.3) 03/23/16 07:13 Magnesium 2.2 mg/dL (1.9-2.7) 03/21/16 05:40 Total Bilirubin 0.6 mg/dL (0.3-1.0) 03/23/16 07:13 Direct Bilirubin 0.20 mg/dL (0.0-0.2) 03/23/16 07:13 AST 29 U/L (13-39) 03/23/16 07:13 ALT 68 U/L (7-52) H 03/23/16 07:13 Alkaline Phosphatase 122 U/L (34-104) H 03/23/16 07:13 Ammonia 62 umol/L (16-53) H 03/23/16 07:13 Troponin I 0.12 ng/mL (0.01-0.05) H* D 03/21/16 13:44 B-Natriuretic Peptide 1340.0 pg/mL (5.0-100.0) H 03/23/16 07:13 Total Protein 6.0 gm/dL (6.0-8.3) 03/23/16 07:13 Albumin 3.3 gm/dL (4.2-5.5) L 03/23/16 07:13 Globulin 2.7 gm/dL 03/23/16 07:13 Albumin/Globulin Ratio 1.2 (1.0-1.8) 03/23/16 07:13 TSH 1.24 uIU/ml (0.34-5.60) 03/23/16 07:13 Urine Source CLEAN C 03/20/16 20:10 Urine Color YELLOW 03/20/16 20:10 Urine Clarity CLEAR (CLEAR) 03/20/16 20:10 Urine pH 5.5 03/20/16 20:10 Ur Specific [place] 1.025 (1.005-1.030) 03/20/16 20:10 Urine Protein 100 mg/dL (NEGATIVE) H 03/20/16 20:10 Urine Glucose (UA) NEGATIVE mg/dL (NEGATIVE) 03/20/16 20:10 Urine Ketones NEGATIVE mg/dL (NEGATIVE) 03/20/16 20:10 Urine Blood NEGATIVE (NEGATIVE) 03/20/16 20:10 Urine Nitrate NEGATIVE (NEGATIVE) 03/20/16 20:10 Urine Bilirubin NEGATIVE (NEGATIVE) 03/20/16 20:10 Urine Urobilinogen 0.2 E.U./dL (0.2 - 1.0) 03/20/16 20:10 Ur Leukocyte Esterase NEGATIVE (NEGATIVE) 03/20/16 20:10 Urine RBC NONE SEEN /hpf (0-5) 03/20/16 20:10 Urine WBC NONE SEEN /hpf (0-5) 03/20/16 20:10 Ur Epithelial Cells NONE SEEN /lpf (FEW) 03/20/16 20:10 Urine Bacteria NONE SEEN /hpf (NONE SEEN) 03/20/16 20:10 U Random Total Protein 41.0 mg/dL 03/22/16 12:00 Urine Collection Time 24 hours 03/22/16 12:00 Urine Total Volume 1050 ml 03/22/16 12:00 U Tot Protein 24h, Calc 430.5 mg/24 hr (0-165) H 03/22/16 12:00 Urine Opiates Screen NEGATIVE (NEGATIVE) 03/20/16 20:10 Ur Barbiturates Screen NEGATIVE (NEGATIVE) 03/20/16 20:10 Ur Phencyclidine Scrn NEGATIVE (NEGATIVE) 03/20/16 20:10 Amphetamines Screen POSITIVE (NEGATIVE) H 03/20/16 20:10 U Methamphetamines Scrn POSITIVE (NEGATIVE) H 03/20/16 20:10 U Benzodiazepines Scrn NEGATIVE (NEGATIVE) 03/20/16 20:10 U Cocaine Metab Screen NEGATIVE (NEGATIVE) 03/20/16 20:10 U Cannabinoids Screen NEGATIVE (NEGATIVE) 03/20/16 20:10 Ethyl Alcohol < 10 mg/dL (0-10) 03/20/16 17:02 - Physical Exam Vitals and I&O: Vital Signs Temp 96.8 F 03/23/16 12:00 Pulse 74 03/23/16 16:58 Resp 20 03/23/16 16:00 BP 150/97 03/23/16 16:58 Pulse Ox 98 03/23/16 14:20 Intake & Output 03/23/16 03/23/16 03/24/16 06:59 18:59 06:59 Intake Total 200 700 Output Total 200 650 Balance 0 50 Intake: Intake, IV Amount 50 350 Azithromycin 500 mg In 250 Sodium Chloride 0.9% 250 ml @ 250 mls/hr IV Q24HR [facility] Rx#:[id number] cefTRIAXone 1 gm In 100 Sodium Chloride 0.9% 100 ml @ 100 mls/hr IV Q24H [facility] Rx#:[id number] cefTRIAXone 1 gm In 50 Sodium Chloride 0.9% 50 ml @ 100 mls/hr IV Q24H [facility] Rx#:[id number] Oral 150 350 Output: Urine 200 650 Other: # Bowel Movements 1 1 Active Medications: Current Medications Albuterol Sulfate (Albuterol 2.5mg/3ml Neb Ud) 2.5 mg HHN Q4HRT [facility] Stop: 05/21/16 10:59 Last Admin: 03/22/16 14:42 Dose: 2.5 mg Albuterol Sulfate (Albuterol 2.5mg/3ml Neb Ud) 2.5 mg HHN Q2HRT PRN PRN Reason: Shortness of Breath Stop: 05/21/16 09:20 Last Admin: 03/22/16 10:32 Dose: 2.5 mg Albuterol/Ipratropium (Duoneb Neb) 3 ml HHN [id number] [facility] Stop: 05/21/16 18:59 Last Admin: 03/23/16 14:23 Dose: 3 ml Aspirin (Ecotrin) 81 mg PO DAILY [facility] Stop: 05/20/16 08:59 Last Admin: 03/23/16 08:33 Dose: 81 mg Budesonide (Pulmicort) 0.5 mg HHN BIDRT [facility] Stop: 05/21/16 18:59 Last Admin: 03/23/16 06:58 Dose: 0.5 mg Clonidine HCl (Catapres) 0.1 mg PO Q6H PRN PRN Reason: SBP > 160 Stop: 05/19/16 21:44 Last Admin: 03/23/16 01:30 Dose: 0.1 mg Enoxaparin Sodium (Lovenox) 120 mg SUBQ Q12HR [facility] Stop: 05/20/16 11:59 Last Admin: 03/23/16 10:18 Dose: Not Given Furosemide (Lasix) 40 mg IVP DAILY [facility] Stop: 05/23/16 08:59 Azithromycin 500 mg/ Sodium (Chloride) 250 mls @ 250 mls/hr IV Q24HR [facility] Stop: 05/21/16 07:44 Last Infusion: 03/23/16 10:18 Dose: Infused Ceftriaxone Sodium 1 gm/ (Sodium Chloride) 100 mls @ 100 mls/hr IV Q24H [facility] Stop: 05/19/16 22:59 Last Infusion: 03/23/16 14:02 Dose: Infused Losartan Potassium (Cozaar) 50 mg PO BID [facility] Stop: 05/22/16 08:59 Last Admin: 03/23/16 16:58 Dose: 50 mg Metoprolol Tartrate (Lopressor) 50 mg PO Q8HR [facility] Stop: 05/22/16 08:59 Last Admin: 03/23/16 13:09 Dose: 50 mg Nifedipine (Procardia Xl) 30 mg PO DAILY [facility] Stop: 05/22/16 08:59 Last Admin: 03/23/16 08:32 Dose: 30 mg General: Alert Cardiovascular: Regular rate Lungs: Other (rales) Abdomen: Soft Extremities: Edema Assessment/Plan - Problem List Patient Problems: All Active Problems GENERALIZED WEAKNESS (Acute ~03/20/16) Diabetes mellitus (Acute) E11.9 High cholesterol (Acute) E78.0 Homeless (Acute) Z59.0 Hypertensive encephalopathy (Acute) I67.4 Severe hypertension (Acute) I10 Unstable angina (Acute) - Assessment Assessment: CHF ( systolic heart failure) Cardiomyopathy Methamphetamine abuse COPD exacerbation Obesity Elevated troponin possibly related to CHF HTN - Plan Plan: IV Lasix increased to 40 dailyS Beta kendall Lovenox Frequent HHN Oxygen IV rocephine Solumedrol Monitor vitals Highly advised to stop cigarette and Methamphetamine use Cardiology and Pulmonary following senior risk manager consulted to home health and home oxygen arrangement Plan of care discussed with patient and nursing staff
--- NOTE | 2016-03-24 03:28 | Progress Notes ---
Case discussed with staff of the patient, reviewed records. The patient was seen by the urologist. The patient has ____, hypertension, diabetes mellitus, benign prostatic hypertrophy need a Nephrology followup. I discussed with the patient today, if he ever took medication stimulant because urine drug screen positive for amphetamine. He denies that. He denies any intent to harm himself or anybody. However, the staff reported to be paranoid. He is on Risperdal and he reports he used to use drugs, but not before, the patient reported no side effects ____, no sedation, no nausea, no extrapyramidal symptoms. The patient needs to follow up with the psychiatrist, primary care physician and a therapist in a ____ program. Thank you very much for allowing me to participate in the care of this most interesting gentleman. JOB# [id number]
--- NOTE | 2016-03-24 05:03 | Progress Notes ---
PROBLEM LIST: 1. Acute respiratory failure. 2. Congestive heart failure. 3. Severe obstructive sleep apnea syndrome. 4. Renal failure. SYMPTOMS: Nil, feeling better, less shortness of breath. No coughing and wheezing. PHYSICAL EXAMINATION: VITAL SIGNS: Temperature is 96.8, blood pressure 138/85, saturation 95% on 2 liters. NECK: Veins not visualized. JVP not visualized. CHEST: Shows diminished air entry with occasional rhonchi. HEART: Regular. EXTREMITIES: Shows slight trace of peripheral edema. ASSESSMENT: The patient clinically appears to be stable, not much changed, may be slightly improved with congestive heart failure with suspect obstructive sleep apnea syndrome. PLANS AND SUGGESTIONS: We will continue current treatment. We will follow through other studies in next few days' time and go from there. JOB# [id number]
[2016-03-24] MEDS: Albuterol/Ipratropium Neb 3 ML AERS HHN SCH ×4 (06:37→20:17)
[2016-03-24] MEDS: Azithromycin 500 MG in Sodium Chloride 0.9% 250 ML IV SCH (08:10)
[2016-03-24] MEDS: NIFEdipine 30 mg ER Tab PO SCH (10:24)
[2016-03-24] MEDS: Enoxaparin 60 mg/0.6 mL 0.6mL Syr SUBQ SCH ×2 (10:29→21:13)
--- NOTE | 2016-03-24 11:57 | Diagnostic Imaging Report ---
Chest x-ray (2 views) HISTORY: Shortness of breath Compared with prior exam of March 22, 2016, there remains marked cardiomegaly. Evidence of bilateral pleural effusions. Changes are consistent with congestive heart failure. Underlying pneumonia cannot be excluded. IMPRESSION: 1. Little change with persistent cardiomegaly and bilateral pleural effusions consistent with congestive heart failure. Underlying pneumonia cannot be excluded. Clinical correlation is needed.
[2016-03-24] MEDS: cefTRIAXone 1 GM in Sodium Chloride 0.9% 100 ML IV SCH (13:31)
--- NOTE | 2016-03-24 14:45 | Diagnostic Imaging Report ---
Portable chest x-ray HISTORY: Shortness of breath Compared to prior exam of March 20, 2016, heart is enlarged. Pulmonary vascular redistribution is consistent with a degree of congestive heart failure. Small bilateral pleural effusions. IMPRESSION: 1. No significant change with persistent cardiomegaly and small bilateral pleural effusions consistent with a degree of congestive heart failure. Clinical correlation is needed.
[2016-03-24] MEDS: Albuterol Nebulizer 2.5mg/3mL HHN SCH (20:14)
[2016-03-24] MEDS: Budesonide 0.5 Mg/2 mL Ud HHN SCH (20:15)
[2016-03-25 06:06] LABS: ALB/GLOB RATIO 1.4 (1.0-1.8); ALKALINE PHOSPHATASE 110 U/L (34-104); ANION GAP 7.8 (7.0-16.0); BILIRUBIN,TOTAL 0.6 mg/dL (0.3-1.0); BUN - UREA NITROGEN 35 mg/dL (7-25); BUN/CREATININE RATIO 26.9; CALCIUM SERUM 8.7 mg/dL (8.6-10.3); CARBON DIOXIDE 30.9 mEq/L (21.0-31.0); CHLORIDE 102 mEq/L (98-107); CREATININE - SERUM 1.3 mg/dL (0.7-1.3); GLUCOSE 139 mg/dL (70-105); POTASSIUM SERUM 3.7 mEq/L (3.5-5.1); SGOT 48 U/L (13-39); SGPT/ALT 101 U/L (7-52); SODIUM SERUM 137 mEq/L (136-145)
[2016-03-25] MEDS: Azithromycin 500 MG in Sodium Chloride 0.9% 250 ML IV SCH (08:30)
[2016-03-25] MEDS: NIFEdipine 30 mg ER Tab PO SCH (09:19)
[2016-03-25] MEDS: Enoxaparin 60 mg/0.6 mL 0.6mL Syr SUBQ SCH (09:22)
[2016-03-25] MEDS: cefTRIAXone 1 GM in Sodium Chloride 0.9% 100 ML IV SCH (09:57)
[2016-03-25] MEDS: Albuterol/Ipratropium Neb 3 ML AERS HHN SCH ×3 (11:14→19:12)
[2016-03-25] MEDS: Budesonide 0.5 Mg/2 mL Ud HHN SCH ×2 (11:16→19:12)
--- NOTE | 2016-03-25 19:39 | General Progress Note ---
Subjective - Review of Systems Service Date: 03/25/16 Subjective: Patient seen and examined doing better no new concern Objective - Results Result Diagrams: 03/23/16 07:13 03/25/16 05:19 Recent Labs: Laboratory Last Values WBC 13.6 Th/cmm (4.8-10.8) H 03/23/16 07:13 RBC 5.51 Mil/cmm (4.30-5.70) 03/23/16 07:13 Hgb 14.5 gm/dL (13.2-17.3) 03/23/16 07:13 Hct 44.2 % (39.0-49.0) 03/23/16 07:13 MCV 80.3 fl (80-99) 03/23/16 07:13 MCH 26.4 pg (26.0-30.0) 03/23/16 07:13 MCHC Differential 32.9 pg (28.0-36.0) 03/23/16 07:13 RDW 14.2 % (11.5-20.0) 03/23/16 07:13 Plt Count 329 Th/cmm (150-400) 03/23/16 07:13 MPV 9.3 fl 03/23/16 07:13 Neutrophils % 79.0 % (40.0-80.0) 03/22/16 05:48 Lymphocytes % 13.4 % (20.0-50.0) L 03/22/16 05:48 Monocytes % 6.5 % (2.0-10.0) 03/22/16 05:48 Eosinophils % 0.9 % (0.0-5.0) 03/22/16 05:48 Basophils % 0.2 % (0.0-2.0) 03/22/16 05:48 Neutrophils (Manual) 82 % (40-80) H 03/23/16 07:13 Lymphocytes 12 % (20-50) L 03/23/16 07:13 Monocytes 6 % (2-10) 03/23/16 07:13 Platelet Estimate ADEQUATE (NORMAL) 03/23/16 07:13 Platelet Morphology NORMAL (NORMAL) 03/23/16 07:13 RBC Morph Micro Appear NORMAL (NORMAL) 03/23/16 07:13 Specimen Source Arterial 03/23/16 09:00 Sample Site Right Radial 03/23/16 09:00 pH 7.39 (7.35-7.45) 03/23/16 09:00 pCO2 48.0 mmHg (35.0-45.0) H 03/23/16 09:00 pO2 51.0 mmHg (80.0-100.0) L 03/23/16 09:00 HCO3 29.1 mmol/L (20.0-26.0) H 03/23/16 09:00 Base Excess 3.3 mmol/L (-3.0-3.0) H 03/23/16 09:00 O2 Saturation 85.0 % (92.0-100.0) L 03/23/16 09:00 Alexis Test YES 03/23/16 09:00 Vent Rate NA 03/23/16 09:00 Inspired O2 21 03/23/16 09:00 Tidal Volume NA 03/23/16 09:00 PEEP NA 03/23/16 09:00 Pressure (ins/psv/peep) NA 03/23/16 09:00 Critical Value SH 03/23/16 09:00 Sodium 137 mEq/L (136-145) 03/25/16 05:19 Potassium 3.7 mEq/L (3.5-5.1) 03/25/16 05:19 Chloride 102 mEq/L (98-107) 03/25/16 05:19 Carbon Dioxide 30.9 mEq/L (21.0-31.0) 03/25/16 05:19 Anion Gap 7.8 (7.0-16.0) 03/25/16 05:19 BUN 35 mg/dL (7-25) H 03/25/16 05:19 Creatinine 1.3 mg/dL (0.7-1.3) 03/25/16 05:19 Est GFR ( Amer) > 60.0 ml/min (>90) 03/25/16 05:19 Est GFR (Non-Af Amer) > 60.0 ml/min 03/25/16 05:19 BUN/Creatinine Ratio 26.9 03/25/16 05:19 Glucose 139 mg/dL (70-105) H 03/25/16 05:19 Uric Acid 7.8 mg/dL (4.4-7.6) H 03/21/16 05:40 Calcium 8.7 mg/dL (8.6-10.3) 03/25/16 05:19 Magnesium 2.2 mg/dL (1.9-2.7) 03/21/16 05:40 Total Bilirubin 0.6 mg/dL (0.3-1.0) 03/25/16 05:19 Direct Bilirubin 0.20 mg/dL (0.0-0.2) 03/23/16 07:13 AST 48 U/L (13-39) H 03/25/16 05:19 ALT 101 U/L (7-52) H 03/25/16 05:19 Alkaline Phosphatase 110 U/L (34-104) H 03/25/16 05:19 Ammonia 62 umol/L (16-53) H 03/23/16 07:13 Troponin I 0.12 ng/mL (0.01-0.05) H* D 03/21/16 13:44 B-Natriuretic Peptide 1190.0 pg/mL (5.0-100.0) H 03/25/16 05:19 Total Protein 6.0 gm/dL (6.0-8.3) 03/25/16 05:19 Albumin 3.5 gm/dL (4.2-5.5) L 03/25/16 05:19 Globulin 2.5 gm/dL 03/25/16 05:19 Albumin/Globulin Ratio 1.4 (1.0-1.8) 03/25/16 05:19 TSH 1.24 uIU/ml (0.34-5.60) 03/23/16 07:13 Urine Source CLEAN C 03/20/16 20:10 Urine Color YELLOW 03/20/16 20:10 Urine Clarity CLEAR (CLEAR) 03/20/16 20:10 Urine pH 5.5 03/20/16 20:10 Ur Specific [place] 1.025 (1.005-1.030) 03/20/16 20:10 Urine Protein 100 mg/dL (NEGATIVE) H 03/20/16 20:10 Urine Glucose (UA) NEGATIVE mg/dL (NEGATIVE) 03/20/16 20:10 Urine Ketones NEGATIVE mg/dL (NEGATIVE) 03/20/16 20:10 Urine Blood NEGATIVE (NEGATIVE) 03/20/16 20:10 Urine Nitrate NEGATIVE (NEGATIVE) 03/20/16 20:10 Urine Bilirubin NEGATIVE (NEGATIVE) 03/20/16 20:10 Urine Urobilinogen 0.2 E.U./dL (0.2 - 1.0) 03/20/16 20:10 Ur Leukocyte Esterase NEGATIVE (NEGATIVE) 03/20/16 20:10 Urine RBC NONE SEEN /hpf (0-5) 03/20/16 20:10 Urine WBC NONE SEEN /hpf (0-5) 03/20/16 20:10 Ur Epithelial Cells NONE SEEN /lpf (FEW) 03/20/16 20:10 Urine Bacteria NONE SEEN /hpf (NONE SEEN) 03/20/16 20:10 U Random Total Protein 41.0 mg/dL 03/22/16 12:00 Urine Collection Time 24 hours 03/22/16 12:00 Urine Total Volume 1050 ml 03/22/16 12:00 U Tot Protein 24h, Calc 430.5 mg/24 hr (0-165) H 03/22/16 12:00 Urine Opiates Screen NEGATIVE (NEGATIVE) 03/20/16 20:10 Ur Barbiturates Screen NEGATIVE (NEGATIVE) 03/20/16 20:10 Ur Phencyclidine Scrn NEGATIVE (NEGATIVE) 03/20/16 20:10 Amphetamines Screen POSITIVE (NEGATIVE) H 03/20/16 20:10 U Methamphetamines Scrn POSITIVE (NEGATIVE) H 03/20/16 20:10 U Benzodiazepines Scrn NEGATIVE (NEGATIVE) 03/20/16 20:10 U Cocaine Metab Screen NEGATIVE (NEGATIVE) 03/20/16 20:10 U Cannabinoids Screen NEGATIVE (NEGATIVE) 03/20/16 20:10 Ethyl Alcohol < 10 mg/dL (0-10) 03/20/16 17:02 - Physical Exam Vitals and I&O: Vital Signs Temp 98.2 F 03/25/16 16:09 Pulse 68 03/25/16 17:21 Resp 20 03/25/16 16:09 BP 148/83 03/25/16 17:21 Pulse Ox 99 03/25/16 16:09 Intake & Output 03/25/16 03/25/16 03/26/16 06:59 18:59 06:59 Intake Total 200 1200 Output Total 650 Balance 200 550 Intake: Oral 200 1200 Output: Urine 650 Other: # Voids 3 3 Active Medications: Current Medications Albuterol Sulfate (Albuterol 2.5mg/3ml Neb Ud) 2.5 mg HHN Q4HRT [facility] Stop: 05/21/16 10:59 Last Admin: 03/22/16 14:42 Dose: 2.5 mg Albuterol Sulfate (Albuterol 2.5mg/3ml Neb Ud) 2.5 mg HHN Q2HRT PRN PRN Reason: Shortness of Breath Stop: 05/21/16 09:20 Last Admin: 03/22/16 10:32 Dose: 2.5 mg Albuterol/Ipratropium (Duoneb Neb) 3 ml HHN [id number] [facility] Stop: 05/21/16 18:59 Last Admin: 03/25/16 19:12 Dose: 3 ml Aspirin (Ecotrin) 81 mg PO DAILY [facility] Stop: 05/20/16 08:59 Last Admin: 03/25/16 09:19 Dose: 81 mg Budesonide (Pulmicort) 0.5 mg HHN BIDRT [facility] Stop: 05/21/16 18:59 Last Admin: 03/25/16 19:12 Dose: 0.5 mg Clonidine HCl (Catapres) 0.1 mg PO Q6H PRN PRN Reason: SBP > 160 Stop: 05/19/16 21:44 Last Admin: 03/24/16 08:02 Dose: 0.1 mg Enoxaparin Sodium (Lovenox) 40 mg SUBQ DAILY [facility] Stop: 05/25/16 08:59 Furosemide (Lasix) 40 mg IVP BID [facility] Stop: 05/23/16 16:59 Last Admin: 03/25/16 09:31 Dose: 40 mg Azithromycin 500 mg/ Sodium (Chloride) 250 mls @ 250 mls/hr IV Q24HR [facility] Stop: 05/21/16 07:44 Last Admin: 03/25/16 08:30 Dose: 250 mls/hr Ceftriaxone Sodium 1 gm/ (Sodium Chloride) 100 mls @ 100 mls/hr IV Q24H [facility] Stop: 05/19/16 22:59 Last Admin: 03/25/16 09:57 Dose: 100 mls/hr Losartan Potassium (Cozaar) 50 mg PO BID [facility] Stop: 05/22/16 08:59 Last Admin: 03/25/16 17:20 Dose: 50 mg Metoprolol Tartrate (Lopressor) 50 mg PO Q6HR [facility] Stop: 05/23/16 05:59 Last Admin: 03/25/16 17:21 Dose: 50 mg Nifedipine (Procardia Xl) 90 mg PO DAILY [facility] Stop: 05/25/16 08:59 Risperidone (Risperdal) 0.5 mg PO BID [facility] PRN Reason: Protocol Stop: 05/24/16 16:59 Cardiovascular: Regular rate Lungs: Other (few rales) Abdomen: Soft Assessment/Plan - Problem List Patient Problems: All Active Problems GENERALIZED WEAKNESS (Acute ~03/20/16) Diabetes mellitus (Acute) E11.9 High cholesterol (Acute) E78.0 Homeless (Acute) Z59.0 Hypertensive encephalopathy (Acute) I67.4 Severe hypertension (Acute) I10 Unstable angina (Acute) - Assessment Assessment: CHF ( systolic heart failure) Cardiomyopathy Methamphetamine abuse COPD exacerbation Obesity Elevated troponin possibly related to CHF HTN - Plan Plan: Lasix 40 BID Beta kendall Lovenox Frequent HHN Oxygen IV rocephine Solumedrol Monitor vitals Highly advised to stop cigarette and Methamphetamine use Cardiology and Pulmonary following manager cath lab consulted to home health and home oxygen arrangement Plan of care discussed with patient and nursing staff
[2016-03-26 05:58] LABS: ANION GAP 6.6 (7.0-16.0); BUN - UREA NITROGEN 29 mg/dL (7-25); BUN/CREATININE RATIO 20.7; CALCIUM SERUM 8.5 mg/dL (8.6-10.3); CARBON DIOXIDE 32.5 mEq/L (21.0-31.0); CHLORIDE 102 mEq/L (98-107); CREATININE - SERUM 1.4 mg/dL (0.7-1.3); GLUCOSE 138 mg/dL (70-105); POTASSIUM SERUM 4.1 mEq/L (3.5-5.1); SODIUM SERUM 137 mEq/L (136-145)
[2016-03-26] MEDS: Budesonide 0.5 Mg/2 mL Ud HHN SCH ×2 (07:27→20:12)
[2016-03-26 07:32] LABS: HEMOGLOBIN 15.1 gm/dL (13.2-17.3)
[2016-03-26 07:35] LABS: MEAN CELL VOLUME 80.2 fl (80-99); MEAN CORPUSCULAR HEMOGLOBIN 26.4 pg (26.0-30.0); MEAN CORPUSCULAR HGB CONC 32.9 pg (28.0-36.0); MEAN PLATELET VOLUME 9.4 fl; PLATELET COUNT 266 Th/cmm (150-400); RED BLOOD COUNT 5.74 Mil/cmm (4.30-5.70); RED CELL DISTRIBUTION WIDTH 14.2 % (11.5-20.0); WHITE BLOOD COUNT 11.6 Th/cmm (4.8-10.8)
[2016-03-26] MEDS: Albuterol/Ipratropium Neb 3 ML AERS HHN SCH ×4 (07:38→20:12)
[2016-03-26 08:34] LABS: BAND NEUTROPHILE 3 % (0-10); NEUTROPHILS 72 % (40-80); TOTAL CELLS COUNTED 100
[2016-03-26 08:35] LABS: PLATELET ESTIMATE ADEQUATE (NORMAL)
[2016-03-26 09:34] LABS: ABG SOURCE Arterial; ALLEN TEST Positive; BE(B) 6.4 mmol/L (-3.0-3.0); HCO3 30.5 mmol/L (20.0-26.0); pH 7.48 (7.35-7.45)
[2016-03-26 09:35] LABS: FIO2 21
[2016-03-26] MEDS: Enoxaparin 40 mg/0.4 mL 0.4mL Syr SUBQ SCH (09:38)
[2016-03-26] MEDS: Azithromycin 500 MG in Sodium Chloride 0.9% 250 ML IV SCH (09:39)
[2016-03-26] MEDS: NIFEdipine 30 mg ER Tab PO SCH (09:43)
--- NOTE | 2016-03-26 11:11 | Diagnostic Imaging Report ---
Chest 2 views INDICATION: Shortness of breath, cough COMPARISON: Chest x-ray 03/23/2016 FINDINGS: Congestive changes are again noted with small bilateral effusions and bibasal infiltrates. Cardiomegaly is noted. IMPRESSION: Congestive changes, slightly improved since previous examination Small bilateral effusions. Pneumonia of the lung bases cannot be excluded Cardiomegaly.
[2016-03-26] MEDS: cefTRIAXone 1 GM in Sodium Chloride 0.9% 100 ML IV SCH (11:32)
--- NOTE | 2016-03-26 13:45 | History & Physical ---
CHIEF COMPLAINT: Shortness of breath. HISTORY OF PRESENT ILLNESS: This is a 55-year-old male with underlying history of hypertension who was brought into the Emergency Room for evaluation of shortness of breath and generalized weakness. The patient was diagnosed with the congestive heart failure and very high blood pressures. The patient admitted to the hospital for further treatment. The patient said that he has been having blood pressure problem for the last few years, but not complaint with his medications. He was recently got out of the skilled nursing. He has also been using methamphetamine on a daily basis. The patient denies any prior history of heart attack, stroke. Upon evaluation in the Emergency Room, the patient was diagnosed with congestive heart history, possible tracheobronchitis and elevated troponins. PAST MEDICAL HISTORY: Hypertension. PAST SURGICAL HISTORY: Denies. FAMILY HISTORY: Denies significant family history. SOCIAL HISTORY: Methamphetamine abuse and he is homeless, also daily cigarette smoking, denies any alcohol or other street drug use. CURRENT MEDICATIONS: As per the medication reconciliation list reviewed. ALLERGIES: No known drug allergies. REVIEW OF SYSTEMS: The patient denies any chest pain, no dizziness, no palpitations, no fever, no chills. Complains of shortness of breath. Denies any headache. No trouble vision. No trouble speech or any extremity weakness or numbness. PHYSICAL EXAMINATION: VITAL SIGNS: Upon admission, the patient's vital signs, 98.2, pulse 112, respiration 16, blood pressure 189/113. GENERAL APPEARANCE: The patient does not seem to be in acute distress. HEENT: No neck stiffness. Negative rigidity. CHEST: Bilateral rales noted. HEART: S1, S2 normal. No murmur or infarcts. ABDOMEN: Soft, nontender. NEUROLOGIC: The patient is awake. Moves all. No focal deficits. EXTREMITIES: +1 pitting edema noted. LABORATORY DATA: As follows: WBC 14.1, hemoglobin was 14.9, platelet count was 266, pH was7.35, pO2 was 51. Sodium was 139, potassium was 4.2, BUN was 29, creatinine was 1.6, ALT was 68. AST was 429. BNP was 613. TSH was 1.24. Toxicology, urine toxin positive for methamphetamine. Chest x-ray, suggestive of cardiomegaly with bilateral pleural effusions,congestive heart failure, underlying pneumonia cannot be excluded. ASSESSMENT: 1. Congestive heart failure. 2. Possible pneumonia. 3. Noncompliance. 4. Hypertension, uncontrolled. 5. Methamphetamine abuse. 6. Obesity. PLAN: The patient admitted on tele unit. The patient was started on IV antibiotic and nebulizer treatment, diuresis. Cardiology, Pulmonology and Nephrology was consulted. Renal ultrasound ordered. Psychiatry also consulted for chemical dependency. The patient was advised for methamphetamine and smoking cessation. Oxygen and frequent HHN started. The patient also started on beta-kendall and aspirin. Cardiology evaluated the patient and was started on Lovenox in light of possible ACS ( elevated trop) The patient labs, vitals and followup chest x-ray will be done. We will follow up on specialty evaluation and recommendations. Discussed with patient re: his condition and plan of care. He verbalized understanding. JOB# [id number] [email or web address]
--- NOTE | 2016-03-26 17:24 | Consultation ---
HISTORY OF PRESENT ILLNESS: A 55-year-old male. This is a followup note. History of hypertension and poor historian. Denying any psych history, but the patient appears to be cognitively impaired, which is odd for his age of 55. ____ significant substance abuse history including cocaine and ____ and alcohol. States he was a heavy drinker in the past and oriented to name. He does not really know where he is or why he is here, not quite sure about the year, but knows the month is March. PAST PSYCHIATRIC HISTORY: Denies any suicide history. SOCIAL HISTORY: Living with family. SUBSTANCE ABUSE HISTORY: As noted. MENTAL STATUS EXAMINATION: Awake, alert, poor ADLs. Unkempt, messy hair. Mood "okay." Affect flat. Thought processes seemed confused, disoriented. No SI, no HI. No evidence of psychosis. Insight and judgment diminished x 2. PROVISIONAL DIAGNOSIS: Possible cognitive decline due to severe alcoholism, rule out schizophrenia. MEDICAL: As noted. RECOMMENDATIONS AND PLAN: The patient fairly stable, currently on Risperdal, no hallucinations or paranoia at this time. It was noted the patient is on Risperdal, will get this started. If the patient is able to return home and family is able to care for him than no need for any psychiatric hospitalization. If they are unwilling to take him home, I would be concerned about grave disability. JOB# [id number]
--- NOTE | 2016-03-26 17:38 | Progress Notes ---
PROBLEM LIST: 1. Acute respiratory failure. 2. Congestive heart failure. 3. Cardiomyopathy. 4. COPD. 5. Suspect obstructive sleep apnea syndrome. SYMPTOMS: Nil, feeling much better. Denies of any specific symptomatology with shortness of breath, coughing and wheezing at this particular time. PHYSICAL EXAMINATION: VITAL SIGNS: The patient's temperature is 98.6, blood pressure 138/88 and saturation 98 on 2 liters of oxygen. NECK: Veins not visualized. CHEST: Shows diminished air entry without any other adventitious breath sounds. HEART: Regular. EXTREMITIES: Shows slight trace of peripheral edema. ASSESSMENT: The patient clinically overall seemingly better. PLANS AND SUGGESTIONS: We will repeat chest x-ray, etc. including need for O2, etc., and go from there. JOB# [id number]
--- NOTE | 2016-03-26 18:07 | Progress Notes ---
PROBLEM LIST: 1. Acute respiratory failure, improved. 2. Chronic obstructive pulmonary disease. 3. Congestive heart failure. 4. Obstructive sleep apnea syndrome. SYMPTOMS: Nil, claiming to be feeling better, still short of breath at nighttime. No chest pain, etc. PHYSICAL EXAMINATION: VITAL SIGNS: The patient's recorded vitals: Temperature is 98.2, blood pressure ____, saturation is 99%, does not keep oxygen on all the time. NECK: Veins not visualized. CHEST: Shows diminished air entry. HEART: Regular. EXTREMITIES: Shows no peripheral edema. ASSESSMENT: The patient clinically overall doing better, respiratory bob. PLAN/SUGGESTIONS: We will continue current treatment, follow-through x-rays, etc. and go from there. JOB# [id number]
--- NOTE | 2016-03-26 18:45 | General Progress Note ---
Subjective - Review of Systems Service Date: 03/26/16 Subjective: Patient seen and examined doing better no new concern Objective - Results Result Diagrams: 03/26/16 05:20 03/26/16 05:20 Recent Labs: Laboratory Last Values WBC 11.6 Th/cmm (4.8-10.8) H 03/26/16 05:20 RBC 5.74 Mil/cmm (4.30-5.70) H 03/26/16 05:20 Hgb 15.1 gm/dL (13.2-17.3) 03/26/16 05:20 Hct 46.0 % (39.0-49.0) 03/26/16 05:20 MCV 80.2 fl (80-99) 03/26/16 05:20 MCH 26.4 pg (26.0-30.0) 03/26/16 05:20 MCHC Differential 32.9 pg (28.0-36.0) 03/26/16 05:20 RDW 14.2 % (11.5-20.0) 03/26/16 05:20 Plt Count 266 Th/cmm (150-400) 03/26/16 05:20 MPV 9.4 fl 03/26/16 05:20 Neutrophils % 79.0 % (40.0-80.0) 03/22/16 05:48 Band Neutrophils % 3 % (0-10) 03/26/16 05:20 Lymphocytes % 13.4 % (20.0-50.0) L 03/22/16 05:48 Monocytes % 6.5 % (2.0-10.0) 03/22/16 05:48 Eosinophils % 0.9 % (0.0-5.0) 03/22/16 05:48 Basophils % 0.2 % (0.0-2.0) 03/22/16 05:48 Neutrophils (Manual) 72 % (40-80) 03/26/16 05:20 Lymphocytes 16 % (20-50) L 03/26/16 05:20 Monocytes 9 % (2-10) 03/26/16 05:20 Platelet Estimate ADEQUATE (NORMAL) 03/26/16 05:20 Platelet Morphology NORMAL (NORMAL) 03/23/16 07:13 RBC Morph Micro Appear NORMAL (NORMAL) 03/23/16 07:13 Specimen Source Arterial 03/26/16 09:14 Sample Site Right Radial 03/26/16 09:14 pH 7.48 (7.35-7.45) H 03/26/16 09:14 pCO2 41.0 mmHg (35.0-45.0) 03/26/16 09:14 pO2 73.0 mmHg (80.0-100.0) L 03/26/16 09:14 HCO3 30.5 mmol/L (20.0-26.0) H 03/26/16 09:14 Base Excess 6.4 mmol/L (-3.0-3.0) H 03/26/16 09:14 O2 Saturation 96.0 % (92.0-100.0) 03/26/16 09:14 Alexis Test Positive 03/26/16 09:14 Vent Rate NA 03/26/16 09:14 Inspired O2 21 03/26/16 09:14 Tidal Volume NA 03/26/16 09:14 PEEP NA 03/26/16 09:14 Pressure (ins/psv/peep) NA 03/26/16 09:14 Critical Value PING 03/26/16 09:14 Sodium 137 mEq/L (136-145) 03/26/16 05:20 Potassium 4.1 mEq/L (3.5-5.1) 03/26/16 05:20 Chloride 102 mEq/L (98-107) 03/26/16 05:20 Carbon Dioxide 32.5 mEq/L (21.0-31.0) H 03/26/16 05:20 Anion Gap 6.6 (7.0-16.0) L 03/26/16 05:20 BUN 29 mg/dL (7-25) H 03/26/16 05:20 Creatinine 1.4 mg/dL (0.7-1.3) H 03/26/16 05:20 Est GFR ( Amer) > 60.0 ml/min (>90) 03/26/16 05:20 Est GFR (Non-Af Amer) 56.1 ml/min 03/26/16 05:20 BUN/Creatinine Ratio 20.7 03/26/16 05:20 Glucose 138 mg/dL (70-105) H 03/26/16 05:20 Uric Acid 7.8 mg/dL (4.4-7.6) H 03/21/16 05:40 Calcium 8.5 mg/dL (8.6-10.3) L 03/26/16 05:20 Magnesium 2.2 mg/dL (1.9-2.7) 03/21/16 05:40 Total Bilirubin 0.6 mg/dL (0.3-1.0) 03/25/16 05:19 Direct Bilirubin 0.20 mg/dL (0.0-0.2) 03/23/16 07:13 AST 48 U/L (13-39) H 03/25/16 05:19 ALT 101 U/L (7-52) H 03/25/16 05:19 Alkaline Phosphatase 110 U/L (34-104) H 03/25/16 05:19 Ammonia 62 umol/L (16-53) H 03/23/16 07:13 Troponin I 0.12 ng/mL (0.01-0.05) H* D 03/21/16 13:44 B-Natriuretic Peptide 852.0 pg/mL (5.0-100.0) H 03/26/16 05:20 Total Protein 6.0 gm/dL (6.0-8.3) 03/25/16 05:19 Albumin 3.5 gm/dL (4.2-5.5) L 03/25/16 05:19 Globulin 2.5 gm/dL 03/25/16 05:19 Albumin/Globulin Ratio 1.4 (1.0-1.8) 03/25/16 05:19 TSH 1.24 uIU/ml (0.34-5.60) 03/23/16 07:13 Urine Source CLEAN C 03/20/16 20:10 Urine Color YELLOW 03/20/16 20:10 Urine Clarity CLEAR (CLEAR) 03/20/16 20:10 Urine pH 5.5 03/20/16 20:10 Ur Specific [place] 1.025 (1.005-1.030) 03/20/16 20:10 Urine Protein 100 mg/dL (NEGATIVE) H 03/20/16 20:10 Urine Glucose (UA) NEGATIVE mg/dL (NEGATIVE) 03/20/16 20:10 Urine Ketones NEGATIVE mg/dL (NEGATIVE) 03/20/16 20:10 Urine Blood NEGATIVE (NEGATIVE) 03/20/16 20:10 Urine Nitrate NEGATIVE (NEGATIVE) 03/20/16 20:10 Urine Bilirubin NEGATIVE (NEGATIVE) 03/20/16 20:10 Urine Urobilinogen 0.2 E.U./dL (0.2 - 1.0) 03/20/16 20:10 Ur Leukocyte Esterase NEGATIVE (NEGATIVE) 03/20/16 20:10 Urine RBC NONE SEEN /hpf (0-5) 03/20/16 20:10 Urine WBC NONE SEEN /hpf (0-5) 03/20/16 20:10 Ur Epithelial Cells NONE SEEN /lpf (FEW) 03/20/16 20:10 Urine Bacteria NONE SEEN /hpf (NONE SEEN) 03/20/16 20:10 U Random Total Protein 41.0 mg/dL 03/22/16 12:00 Urine Collection Time 24 hours 03/22/16 12:00 Urine Total Volume 1050 ml 03/22/16 12:00 U Tot Protein 24h, Calc 430.5 mg/24 hr (0-165) H 03/22/16 12:00 Urine Opiates Screen NEGATIVE (NEGATIVE) 03/20/16 20:10 Ur Barbiturates Screen NEGATIVE (NEGATIVE) 03/20/16 20:10 Ur Phencyclidine Scrn NEGATIVE (NEGATIVE) 03/20/16 20:10 Amphetamines Screen POSITIVE (NEGATIVE) H 03/20/16 20:10 U Methamphetamines Scrn POSITIVE (NEGATIVE) H 03/20/16 20:10 U Benzodiazepines Scrn NEGATIVE (NEGATIVE) 03/20/16 20:10 U Cocaine Metab Screen NEGATIVE (NEGATIVE) 03/20/16 20:10 U Cannabinoids Screen NEGATIVE (NEGATIVE) 03/20/16 20:10 Ethyl Alcohol < 10 mg/dL (0-10) 03/20/16 17:02 - Physical Exam Vitals and I&O: Vital Signs Temp 97.4 F 03/26/16 16:30 Pulse 64 03/26/16 17:23 Resp 18 03/26/16 16:30 BP 152/77 03/26/16 17:23 Pulse Ox 97 03/26/16 16:30 Intake & Output 03/25/16 03/26/16 03/26/16 18:59 06:59 18:59 Intake Total 1550 200 Output Total 650 Balance 900 200 Intake: Intake, IV Amount 350 Azithromycin 500 mg In 250 Sodium Chloride 0.9% 250 ml @ 250 mls/hr IV Q24HR [facility] Rx#:[id number] [id number] 1 gm In 100 Sodium Chloride 0.9% 100 ml @ 100 mls/hr IV Q24H [facility] Rx#:[id number] Oral 1200 200 Output: Urine 650 Other: # Voids 3 1 Active Medications: Current Medications Albuterol Sulfate (Albuterol 2.5mg/3ml Neb Ud) 2.5 mg HHN Q4HRT [facility] Stop: 05/21/16 10:59 Last Admin: 03/22/16 14:42 Dose: 2.5 mg Albuterol Sulfate (Albuterol 2.5mg/3ml Neb Ud) 2.5 mg HHN Q2HRT PRN PRN Reason: Shortness of Breath Stop: 05/21/16 09:20 Last Admin: 03/22/16 10:32 Dose: 2.5 mg Albuterol/Ipratropium (Duoneb Neb) 3 ml HHN [id number] [facility] Stop: 05/21/16 18:59 Last Admin: 03/26/16 16:16 Dose: 3 ml Aspirin (Ecotrin) 81 mg PO DAILY [facility] Stop: 05/20/16 08:59 Last Admin: 03/26/16 09:40 Dose: 81 mg Budesonide (Pulmicort) 0.5 mg HHN BIDRT [facility] Stop: 05/21/16 18:59 Last Admin: 03/26/16 07:27 Dose: 0.5 mg Clonidine HCl (Catapres) 0.1 mg PO Q6H PRN PRN Reason: SBP > 160 Stop: 05/19/16 21:44 Last Admin: 03/24/16 08:02 Dose: 0.1 mg Enoxaparin Sodium (Lovenox) 40 mg SUBQ DAILY [facility] Stop: 05/25/16 08:59 Last Admin: 03/26/16 09:38 Dose: 40 mg Furosemide (Lasix) 40 mg IVP BID [facility] Stop: 05/23/16 16:59 Last Admin: 03/26/16 17:22 Dose: 40 mg Azithromycin 500 mg/ Sodium (Chloride) 250 mls @ 250 mls/hr IV Q24HR [facility] Stop: 05/21/16 07:44 Last Admin: 03/26/16 09:39 Dose: 250 mls/hr Ceftriaxone Sodium 1 gm/ (Sodium Chloride) 100 mls @ 100 mls/hr IV Q24H [facility] Stop: 05/19/16 22:59 Last Admin: 03/26/16 11:32 Dose: 100 mls/hr Losartan Potassium (Cozaar) 50 mg PO BID [facility] Stop: 05/22/16 08:59 Last Admin: 03/26/16 17:23 Dose: 50 mg Metoprolol Tartrate (Lopressor) 50 mg PO Q6HR [facility] Stop: 05/23/16 05:59 Last Admin: 03/26/16 17:23 Dose: 50 mg Nifedipine (Procardia Xl) 90 mg PO DAILY [facility] Stop: 05/25/16 08:59 Last Admin: 03/26/16 09:43 Dose: Not Given Risperidone (Risperdal) 0.5 mg PO BID [facility] PRN Reason: Protocol Stop: 05/24/16 16:59 Last Admin: 03/26/16 17:22 Dose: 0.5 mg Cardiovascular: Normal S1, Normal S2 Lungs: Other (rales better) Abdomen: Soft, no Tender Extremities: Edema Assessment/Plan - Problem List Patient Problems: All Active Problems GENERALIZED WEAKNESS (Acute ~03/20/16) Diabetes mellitus (Acute) E11.9 High cholesterol (Acute) E78.0 Homeless (Acute) Z59.0 Hypertensive encephalopathy (Acute) I67.4 Severe hypertension (Acute) I10 Unstable angina (Acute) - Assessment Assessment: CHF ( systolic heart failure) Cardiomyopathy Methamphetamine abuse COPD exacerbation Obesity Elevated troponin possibly related to CHF HTN - Plan Plan: Lasix 40 BID Beta kendall Lovenox Frequent HHN Oxygen IV rocephine Solumedrol Monitor vitals Highly advised to stop cigarette and Methamphetamine use Cardiology and Pulmonary following DC Planning in progress Plan of care discussed with patient and nursing staff
--- NOTE | 2016-03-27 03:30 | Progress Notes ---
PULMONARY PROGRESS NOTE PROBLEM LIST: 1. Acute congestive heart failure. 2. Chronic obstructive pulmonary disease. 3. Suspect obstructive sleep apnea syndrome. 4. Suspect alcoholic liver disease. SYMPTOMS: Nil. Feeling okay. Offers no specific coughing, wheezing, or shortness of breath. PHYSICAL EXAMINATION: VITAL SIGNS: Temperature is 97.4, blood pressure 157/89, and saturation 97% room air. NECK: Veins not visualized. CHEST: Shows diminished air entry. No other adventitious breath sounds. HEART: Regular. EXTREMITIES: Shows significant edema. LABORATORY DATA: The patient's white count is 11.6, hemoglobin 15.1. ABG shows pO2 of 73, room air. Electrolytes are okay with BUN 37, creatinine 1.4 and BNP is 852, which is coming down. ASSESSMENT: The patient is clinically respiratory bob improving, still bibasilar effusion suggestive of cardiomyopathy, congestive heart failure, stable chronic obstructive pulmonary disease bob and oxygenation bob. PLANS AND SUGGESTIONS: We will continue current treatment and care and plan discussed with the patient's sister at the bedside. JOB# [id number]
[2016-03-27 05:58] LABS: ANION GAP 4.3 (7.0-16.0); BUN - UREA NITROGEN 30 mg/dL (7-25); CALCIUM SERUM 8.7 mg/dL (8.6-10.3); CARBON DIOXIDE 31.9 mEq/L (21.0-31.0); CHLORIDE 104 mEq/L (98-107); CREATININE - SERUM 1.5 mg/dL (0.7-1.3); GLUCOSE 123 mg/dL (70-105); POTASSIUM SERUM 4.2 mEq/L (3.5-5.1); SODIUM SERUM 136 mEq/L (136-145)
[2016-03-27] MEDS: Albuterol/Ipratropium Neb 3 ML AERS HHN SCH ×4 (08:16→19:47)
[2016-03-27] MEDS: Budesonide 0.5 Mg/2 mL Ud HHN SCH ×2 (08:18→19:47)
[2016-03-27] MEDS: NIFEdipine 30 mg ER Tab PO SCH (09:17)
[2016-03-27] MEDS: Enoxaparin 40 mg/0.4 mL 0.4mL Syr SUBQ SCH (09:18)
[2016-03-27] MEDS: Azithromycin 500 MG in Sodium Chloride 0.9% 250 ML IV SCH (09:20)
[2016-03-27] MEDS: cefTRIAXone 1 GM in Sodium Chloride 0.9% 100 ML IV SCH (11:14)
[2016-03-27] MEDS: Albuterol Nebulizer 2.5mg/3mL HHN SCH (19:46)
--- NOTE | 2016-03-27 20:44 | General Progress Note ---
Subjective - Review of Systems Service Date: 03/27/16 Subjective: Patient seen and examined awaiting SNIF placement no new concern Objective - Results Result Diagrams: 03/26/16 05:20 03/27/16 05:17 Recent Labs: Laboratory Last Values WBC 11.6 Th/cmm (4.8-10.8) H 03/26/16 05:20 RBC 5.74 Mil/cmm (4.30-5.70) H 03/26/16 05:20 Hgb 15.1 gm/dL (13.2-17.3) 03/26/16 05:20 Hct 46.0 % (39.0-49.0) 03/26/16 05:20 MCV 80.2 fl (80-99) 03/26/16 05:20 MCH 26.4 pg (26.0-30.0) 03/26/16 05:20 MCHC Differential 32.9 pg (28.0-36.0) 03/26/16 05:20 RDW 14.2 % (11.5-20.0) 03/26/16 05:20 Plt Count 266 Th/cmm (150-400) 03/26/16 05:20 MPV 9.4 fl 03/26/16 05:20 Neutrophils % 79.0 % (40.0-80.0) 03/22/16 05:48 Band Neutrophils % 3 % (0-10) 03/26/16 05:20 Lymphocytes % 13.4 % (20.0-50.0) L 03/22/16 05:48 Monocytes % 6.5 % (2.0-10.0) 03/22/16 05:48 Eosinophils % 0.9 % (0.0-5.0) 03/22/16 05:48 Basophils % 0.2 % (0.0-2.0) 03/22/16 05:48 Neutrophils (Manual) 72 % (40-80) 03/26/16 05:20 Lymphocytes 16 % (20-50) L 03/26/16 05:20 Monocytes 9 % (2-10) 03/26/16 05:20 Platelet Estimate ADEQUATE (NORMAL) 03/26/16 05:20 Platelet Morphology NORMAL (NORMAL) 03/23/16 07:13 RBC Morph Micro Appear NORMAL (NORMAL) 03/23/16 07:13 Specimen Source Arterial 03/26/16 09:14 Sample Site Right Radial 03/26/16 09:14 pH 7.48 (7.35-7.45) H 03/26/16 09:14 pCO2 41.0 mmHg (35.0-45.0) 03/26/16 09:14 pO2 73.0 mmHg (80.0-100.0) L 03/26/16 09:14 HCO3 30.5 mmol/L (20.0-26.0) H 03/26/16 09:14 Base Excess 6.4 mmol/L (-3.0-3.0) H 03/26/16 09:14 O2 Saturation 96.0 % (92.0-100.0) 03/26/16 09:14 Alexis Test Positive 03/26/16 09:14 Vent Rate NA 03/26/16 09:14 Inspired O2 21 03/26/16 09:14 Tidal Volume NA 03/26/16 09:14 PEEP NA 03/26/16 09:14 Pressure (ins/psv/peep) NA 03/26/16 09:14 Critical Value PING 03/26/16 09:14 Sodium 136 mEq/L (136-145) 03/27/16 05:17 Potassium 4.2 mEq/L (3.5-5.1) 03/27/16 05:17 Chloride 104 mEq/L (98-107) 03/27/16 05:17 Carbon Dioxide 31.9 mEq/L (21.0-31.0) H 03/27/16 05:17 Anion Gap 4.3 (7.0-16.0) L 03/27/16 05:17 BUN 30 mg/dL (7-25) H 03/27/16 05:17 Creatinine 1.5 mg/dL (0.7-1.3) H 03/27/16 05:17 Est GFR ( Amer) > 60.0 ml/min (>90) 03/27/16 05:17 Est GFR (Non-Af Amer) 51.8 ml/min 03/27/16 05:17 BUN/Creatinine Ratio 20.0 03/27/16 05:17 Glucose 123 mg/dL (70-105) H 03/27/16 05:17 Uric Acid 7.8 mg/dL (4.4-7.6) H 03/21/16 05:40 Calcium 8.7 mg/dL (8.6-10.3) 03/27/16 05:17 Magnesium 2.2 mg/dL (1.9-2.7) 03/21/16 05:40 Total Bilirubin 0.6 mg/dL (0.3-1.0) 03/25/16 05:19 Direct Bilirubin 0.20 mg/dL (0.0-0.2) 03/23/16 07:13 AST 48 U/L (13-39) H 03/25/16 05:19 ALT 101 U/L (7-52) H 03/25/16 05:19 Alkaline Phosphatase 110 U/L (34-104) H 03/25/16 05:19 Ammonia 62 umol/L (16-53) H 03/23/16 07:13 Troponin I 0.12 ng/mL (0.01-0.05) H* D 03/21/16 13:44 B-Natriuretic Peptide 796.0 pg/mL (5.0-100.0) H 03/27/16 05:17 Total Protein 6.0 gm/dL (6.0-8.3) 03/25/16 05:19 Albumin 3.5 gm/dL (4.2-5.5) L 03/25/16 05:19 Globulin 2.5 gm/dL 03/25/16 05:19 Albumin/Globulin Ratio 1.4 (1.0-1.8) 03/25/16 05:19 TSH 1.24 uIU/ml (0.34-5.60) 03/23/16 07:13 Urine Source CLEAN C 03/20/16 20:10 Urine Color YELLOW 03/20/16 20:10 Urine Clarity CLEAR (CLEAR) 03/20/16 20:10 Urine pH 5.5 03/20/16 20:10 Ur Specific [place] 1.025 (1.005-1.030) 03/20/16 20:10 Urine Protein 100 mg/dL (NEGATIVE) H 03/20/16 20:10 Urine Glucose (UA) NEGATIVE mg/dL (NEGATIVE) 03/20/16 20:10 Urine Ketones NEGATIVE mg/dL (NEGATIVE) 03/20/16 20:10 Urine Blood NEGATIVE (NEGATIVE) 03/20/16 20:10 Urine Nitrate NEGATIVE (NEGATIVE) 03/20/16 20:10 Urine Bilirubin NEGATIVE (NEGATIVE) 03/20/16 20:10 Urine Urobilinogen 0.2 E.U./dL (0.2 - 1.0) 03/20/16 20:10 Ur Leukocyte Esterase NEGATIVE (NEGATIVE) 03/20/16 20:10 Urine RBC NONE SEEN /hpf (0-5) 03/20/16 20:10 Urine WBC NONE SEEN /hpf (0-5) 03/20/16 20:10 Ur Epithelial Cells NONE SEEN /lpf (FEW) 03/20/16 20:10 Urine Bacteria NONE SEEN /hpf (NONE SEEN) 03/20/16 20:10 U Random Total Protein 41.0 mg/dL 03/22/16 12:00 Urine Collection Time 24 hours 03/22/16 12:00 Urine Total Volume 1050 ml 03/22/16 12:00 U Tot Protein 24h, Calc 430.5 mg/24 hr (0-165) H 03/22/16 12:00 Urine Opiates Screen NEGATIVE (NEGATIVE) 03/20/16 20:10 Ur Barbiturates Screen NEGATIVE (NEGATIVE) 03/20/16 20:10 Ur Phencyclidine Scrn NEGATIVE (NEGATIVE) 03/20/16 20:10 Amphetamines Screen POSITIVE (NEGATIVE) H 03/20/16 20:10 U Methamphetamines Scrn POSITIVE (NEGATIVE) H 03/20/16 20:10 U Benzodiazepines Scrn NEGATIVE (NEGATIVE) 03/20/16 20:10 U Cocaine Metab Screen NEGATIVE (NEGATIVE) 03/20/16 20:10 U Cannabinoids Screen NEGATIVE (NEGATIVE) 03/20/16 20:10 Ethyl Alcohol < 10 mg/dL (0-10) 03/20/16 17:02 - Physical Exam Vitals and I&O: Vital Signs Temp 97.9 F 03/27/16 20:00 Pulse 73 03/27/16 20:00 Resp 20 03/27/16 20:00 BP 118/69 03/27/16 20:00 Pulse Ox 98 03/27/16 20:00 Intake & Output 03/27/16 03/27/16 03/28/16 06:59 18:59 06:59 Intake Total 1380 Balance 1380 Intake: Oral 1380 Other: # Voids 2 # Bowel Movements 0 Active Medications: Current Medications Albuterol Sulfate (Albuterol 2.5mg/3ml Neb Ud) 2.5 mg HHN Q4HRT [facility] Stop: 05/21/16 10:59 Last Admin: 03/27/16 19:46 Dose: Not Given Albuterol Sulfate (Albuterol 2.5mg/3ml Neb Ud) 2.5 mg HHN Q2HRT PRN PRN Reason: Shortness of Breath Stop: 05/21/16 09:20 Last Admin: 03/22/16 10:32 Dose: 2.5 mg Albuterol/Ipratropium (Duoneb Neb) 3 ml HHN [id number] [facility] Stop: 05/21/16 18:59 Last Admin: 03/27/16 19:47 Dose: Not Given Aspirin (Ecotrin) 81 mg PO DAILY [facility] Stop: 05/20/16 08:59 Last Admin: 03/27/16 09:18 Dose: 81 mg Budesonide (Pulmicort) 0.5 mg HHN BIDRT [facility] Stop: 05/21/16 18:59 Last Admin: 03/27/16 19:47 Dose: Not Given Clonidine HCl (Catapres) 0.1 mg PO Q6H PRN PRN Reason: SBP > 160 Stop: 05/19/16 21:44 Last Admin: 03/24/16 08:02 Dose: 0.1 mg Enoxaparin Sodium (Lovenox) 40 mg SUBQ DAILY [facility] Stop: 05/25/16 08:59 Last Admin: 03/27/16 09:18 Dose: 40 mg Furosemide (Lasix) 40 mg IVP BID [facility] Stop: 05/23/16 16:59 Last Admin: 03/27/16 18:09 Dose: 40 mg Azithromycin 500 mg/ Sodium (Chloride) 250 mls @ 250 mls/hr IV Q24HR [facility] Stop: 05/21/16 07:44 Last Admin: 03/27/16 09:20 Dose: 250 mls/hr Ceftriaxone Sodium 1 gm/ (Sodium Chloride) 100 mls @ 100 mls/hr IV Q24H [facility] Stop: 05/19/16 22:59 Last Admin: 03/27/16 11:14 Dose: 100 mls/hr Losartan Potassium (Cozaar) 50 mg PO BID [facility] Stop: 05/22/16 08:59 Last Admin: 03/27/16 18:04 Dose: 50 mg Metoprolol Tartrate (Lopressor) 50 mg PO Q6HR [facility] Stop: 05/23/16 05:59 Last Admin: 03/27/16 18:04 Dose: 50 mg Nifedipine (Procardia Xl) 90 mg PO DAILY [facility] Stop: 05/25/16 08:59 Last Admin: 03/27/16 09:17 Dose: 90 mg Risperidone (Risperdal) 0.5 mg PO BID CASSIE PRN Reason: Protocol Stop: 05/24/16 16:59 Last Admin: 03/27/16 18:05 Dose: 0.5 mg Cardiovascular: Regular rate Lungs: Other (rales better) Abdomen: Soft, no Tender Assessment/Plan - Problem List Patient Problems: All Active Problems GENERALIZED WEAKNESS (Acute ~03/20/16) Diabetes mellitus (Acute) E11.9 High cholesterol (Acute) E78.0 Homeless (Acute) Z59.0 Hypertensive encephalopathy (Acute) I67.4 Severe hypertension (Acute) I10 Unstable angina (Acute) - Assessment Assessment: CHF ( systolic heart failure) Cardiomyopathy Methamphetamine abuse COPD exacerbation Obesity Elevated troponin possibly related to CHF HTN - Plan Plan: Lasix 40 BID Beta kendall Lovenox Frequent HHN Oxygen IV rocephine Solumedrol Monitor vitals Highly advised to stop cigarette and Methamphetamine use Cardiology and Pulmonary following DC Planning in progress Plan of care discussed with patient and nursing staff
[2016-03-28 06:58] LABS: ANION GAP 8.5 (7.0-16.0); BUN - UREA NITROGEN 32 mg/dL (7-25); BUN/CREATININE RATIO 21.3; CALCIUM SERUM 8.6 mg/dL (8.6-10.3); CARBON DIOXIDE 29.6 mEq/L (21.0-31.0); CHLORIDE 104 mEq/L (98-107); CREATININE - SERUM 1.5 mg/dL (0.7-1.3); GLUCOSE 127 mg/dL (70-105); POTASSIUM SERUM 4.1 mEq/L (3.5-5.1); SODIUM SERUM 138 mEq/L (136-145)
--- NOTE | 2016-03-28 07:03 | Progress Notes ---
PROBLEM LIST: 1. Acute exacerbation of COPD, improving. 2. Bilateral effusion with congestive heart failure, stable. 3. Obstructive sleep apnea syndrome, unchanged. SYMPTOMS: Nil, feeling okay. No more shortness of breath or coughing or wheezing. PHYSICAL EXAMINATION: VITAL SIGNS: The patient is afebrile, respiration rate is about 20, heart rate is 80, blood pressure 131/77. NECK: JVP not visualized. CHEST: Shows diminished air entry at the bases. HEART: Regular. LABORATORY DATA: Electrolytes are okay with creatinine 1.5, BUN is 30. ASSESSMENT: The patient is stable pulmonary bob though has issues with the left ventricular dysfunction as well as metabolic syndrome, etc and also possibly hepatic disease. PLANS AND SUGGESTIONS: We will continue current treatment or follow through lab and chest x-ray in next few days. JOB# [id number]
[2016-03-28] MEDS: Albuterol/Ipratropium Neb 3 ML AERS HHN SCH ×2 (07:43→19:35)
[2016-03-28] MEDS: Budesonide 0.5 Mg/2 mL Ud HHN SCH ×2 (07:44→19:35)
[2016-03-28] MEDS: Enoxaparin 40 mg/0.4 mL 0.4mL Syr SUBQ SCH (09:52)
[2016-03-28] MEDS: NIFEdipine 30 mg ER Tab PO SCH (09:54)
[2016-03-28] MEDS: Azithromycin 500 MG in Sodium Chloride 0.9% 250 ML IV SCH (09:54)
[2016-03-28] MEDS: Albuterol Nebulizer 2.5mg/3mL HHN SCH ×4 (11:38→23:04)
[2016-03-28] MEDS: cefTRIAXone 1 GM in Sodium Chloride 0.9% 100 ML IV SCH (12:02)
--- NOTE | 2016-03-28 21:43 | General Progress Note ---
Subjective - Review of Systems Service Date: 03/28/16 Subjective: Patient seen and examined awaiting SNIF placement no new concern Objective - Results Result Diagrams: 03/26/16 05:20 03/28/16 06:15 Recent Labs: Laboratory Last Values WBC 11.6 Th/cmm (4.8-10.8) H 03/26/16 05:20 RBC 5.74 Mil/cmm (4.30-5.70) H 03/26/16 05:20 Hgb 15.1 gm/dL (13.2-17.3) 03/26/16 05:20 Hct 46.0 % (39.0-49.0) 03/26/16 05:20 MCV 80.2 fl (80-99) 03/26/16 05:20 MCH 26.4 pg (26.0-30.0) 03/26/16 05:20 MCHC Differential 32.9 pg (28.0-36.0) 03/26/16 05:20 RDW 14.2 % (11.5-20.0) 03/26/16 05:20 Plt Count 266 Th/cmm (150-400) 03/26/16 05:20 MPV 9.4 fl 03/26/16 05:20 Neutrophils % 79.0 % (40.0-80.0) 03/22/16 05:48 Band Neutrophils % 3 % (0-10) 03/26/16 05:20 Lymphocytes % 13.4 % (20.0-50.0) L 03/22/16 05:48 Monocytes % 6.5 % (2.0-10.0) 03/22/16 05:48 Eosinophils % 0.9 % (0.0-5.0) 03/22/16 05:48 Basophils % 0.2 % (0.0-2.0) 03/22/16 05:48 Neutrophils (Manual) 72 % (40-80) 03/26/16 05:20 Lymphocytes 16 % (20-50) L 03/26/16 05:20 Monocytes 9 % (2-10) 03/26/16 05:20 Platelet Estimate ADEQUATE (NORMAL) 03/26/16 05:20 Platelet Morphology NORMAL (NORMAL) 03/23/16 07:13 RBC Morph Micro Appear NORMAL (NORMAL) 03/23/16 07:13 Specimen Source Arterial 03/26/16 09:14 Sample Site Right Radial 03/26/16 09:14 pH 7.48 (7.35-7.45) H 03/26/16 09:14 pCO2 41.0 mmHg (35.0-45.0) 03/26/16 09:14 pO2 73.0 mmHg (80.0-100.0) L 03/26/16 09:14 HCO3 30.5 mmol/L (20.0-26.0) H 03/26/16 09:14 Base Excess 6.4 mmol/L (-3.0-3.0) H 03/26/16 09:14 O2 Saturation 96.0 % (92.0-100.0) 03/26/16 09:14 Alexis Test Positive 03/26/16 09:14 Vent Rate NA 03/26/16 09:14 Inspired O2 21 03/26/16 09:14 Tidal Volume NA 03/26/16 09:14 PEEP NA 03/26/16 09:14 Pressure (ins/psv/peep) NA 03/26/16 09:14 Critical Value PING 03/26/16 09:14 Sodium 138 mEq/L (136-145) 03/28/16 06:15 Potassium 4.1 mEq/L (3.5-5.1) 03/28/16 06:15 Chloride 104 mEq/L (98-107) 03/28/16 06:15 Carbon Dioxide 29.6 mEq/L (21.0-31.0) 03/28/16 06:15 Anion Gap 8.5 (7.0-16.0) 03/28/16 06:15 BUN 32 mg/dL (7-25) H 03/28/16 06:15 Creatinine 1.5 mg/dL (0.7-1.3) H 03/28/16 06:15 Est GFR ( Amer) > 60.0 ml/min (>90) 03/28/16 06:15 Est GFR (Non-Af Amer) 51.8 ml/min 03/28/16 06:15 BUN/Creatinine Ratio 21.3 03/28/16 06:15 Glucose 127 mg/dL (70-105) H 03/28/16 06:15 Uric Acid 7.8 mg/dL (4.4-7.6) H 03/21/16 05:40 Calcium 8.6 mg/dL (8.6-10.3) 03/28/16 06:15 Magnesium 2.2 mg/dL (1.9-2.7) 03/21/16 05:40 Total Bilirubin 0.6 mg/dL (0.3-1.0) 03/25/16 05:19 Direct Bilirubin 0.20 mg/dL (0.0-0.2) 03/23/16 07:13 AST 48 U/L (13-39) H 03/25/16 05:19 ALT 101 U/L (7-52) H 03/25/16 05:19 Alkaline Phosphatase 110 U/L (34-104) H 03/25/16 05:19 Ammonia 62 umol/L (16-53) H 03/23/16 07:13 Troponin I 0.12 ng/mL (0.01-0.05) H* D 03/21/16 13:44 B-Natriuretic Peptide 507.0 pg/mL (5.0-100.0) H 03/28/16 06:15 Total Protein 6.0 gm/dL (6.0-8.3) 03/25/16 05:19 Albumin 3.5 gm/dL (4.2-5.5) L 03/25/16 05:19 Globulin 2.5 gm/dL 03/25/16 05:19 Albumin/Globulin Ratio 1.4 (1.0-1.8) 03/25/16 05:19 TSH 1.24 uIU/ml (0.34-5.60) 03/23/16 07:13 Urine Source CLEAN C 03/20/16 20:10 Urine Color YELLOW 03/20/16 20:10 Urine Clarity CLEAR (CLEAR) 03/20/16 20:10 Urine pH 5.5 03/20/16 20:10 Ur Specific [place] 1.025 (1.005-1.030) 03/20/16 20:10 Urine Protein 100 mg/dL (NEGATIVE) H 03/20/16 20:10 Urine Glucose (UA) NEGATIVE mg/dL (NEGATIVE) 03/20/16 20:10 Urine Ketones NEGATIVE mg/dL (NEGATIVE) 03/20/16 20:10 Urine Blood NEGATIVE (NEGATIVE) 03/20/16 20:10 Urine Nitrate NEGATIVE (NEGATIVE) 03/20/16 20:10 Urine Bilirubin NEGATIVE (NEGATIVE) 03/20/16 20:10 Urine Urobilinogen 0.2 E.U./dL (0.2 - 1.0) 03/20/16 20:10 Ur Leukocyte Esterase NEGATIVE (NEGATIVE) 03/20/16 20:10 Urine RBC NONE SEEN /hpf (0-5) 03/20/16 20:10 Urine WBC NONE SEEN /hpf (0-5) 03/20/16 20:10 Ur Epithelial Cells NONE SEEN /lpf (FEW) 03/20/16 20:10 Urine Bacteria NONE SEEN /hpf (NONE SEEN) 03/20/16 20:10 U Random Total Protein 41.0 mg/dL 03/22/16 12:00 Urine Collection Time 24 hours 03/22/16 12:00 Urine Total Volume 1050 ml 03/22/16 12:00 U Tot Protein 24h, Calc 430.5 mg/24 hr (0-165) H 03/22/16 12:00 Urine Opiates Screen NEGATIVE (NEGATIVE) 03/20/16 20:10 Ur Barbiturates Screen NEGATIVE (NEGATIVE) 03/20/16 20:10 Ur Phencyclidine Scrn NEGATIVE (NEGATIVE) 03/20/16 20:10 Amphetamines Screen POSITIVE (NEGATIVE) H 03/20/16 20:10 U Methamphetamines Scrn POSITIVE (NEGATIVE) H 03/20/16 20:10 U Benzodiazepines Scrn NEGATIVE (NEGATIVE) 03/20/16 20:10 U Cocaine Metab Screen NEGATIVE (NEGATIVE) 03/20/16 20:10 U Cannabinoids Screen NEGATIVE (NEGATIVE) 03/20/16 20:10 Ethyl Alcohol < 10 mg/dL (0-10) 03/20/16 17:02 - Physical Exam Vitals and I&O: Vital Signs Temp 97.7 F 03/28/16 16:00 Pulse 68 03/28/16 19:44 Resp 19 03/28/16 19:44 BP 141/97 03/28/16 16:55 Pulse Ox 99 03/28/16 19:44 Intake & Output 03/28/16 03/28/16 03/29/16 06:59 18:59 06:59 Intake Total 500 250 Balance 500 250 Intake: Intake, IV Amount 250 Azithromycin 500 mg In 250 Sodium Chloride 0.9% 250 ml @ 250 mls/hr IV Q24HR [facility] Rx#:[id number] Oral 500 Other: # Voids 3 # Bowel Movements 1 Active Medications: Current Medications Albuterol Sulfate (Albuterol 2.5mg/3ml Neb Ud) 2.5 mg HHN Q4HRT [facility] Stop: 05/21/16 10:59 Last Admin: 03/28/16 19:35 Dose: 2.5 mg Albuterol Sulfate (Albuterol 2.5mg/3ml Neb Ud) 2.5 mg HHN Q2HRT PRN PRN Reason: Shortness of Breath Stop: 05/21/16 09:20 Last Admin: 03/22/16 10:32 Dose: 2.5 mg Albuterol/Ipratropium (Duoneb Neb) 3 ml HHN [id number] [facility] Stop: 05/21/16 18:59 Last Admin: 03/28/16 19:35 Dose: 3 ml Aspirin (Ecotrin) 81 mg PO DAILY [facility] Stop: 05/20/16 08:59 Last Admin: 03/28/16 09:52 Dose: 81 mg Budesonide (Pulmicort) 0.5 mg HHN BIDRT [facility] Stop: 05/21/16 18:59 Last Admin: 03/28/16 19:35 Dose: 0.5 mg Clonidine HCl (Catapres) 0.1 mg PO Q6H PRN PRN Reason: SBP > 160 Stop: 05/19/16 21:44 Last Admin: 03/24/16 08:02 Dose: 0.1 mg Enoxaparin Sodium (Lovenox) 40 mg SUBQ DAILY [facility] Stop: 05/25/16 08:59 Last Admin: 03/28/16 09:52 Dose: 40 mg Furosemide (Lasix) 40 mg IVP BID [facility] Stop: 05/23/16 16:59 Last Admin: 03/28/16 16:54 Dose: 40 mg Azithromycin 500 mg/ Sodium (Chloride) 250 mls @ 250 mls/hr IV Q24HR [facility] Stop: 05/21/16 07:44 Last Infusion: 03/28/16 10:54 Dose: Infused Ceftriaxone Sodium 1 gm/ (Sodium Chloride) 100 mls @ 100 mls/hr IV Q24H [facility] Stop: 05/19/16 22:59 Last Admin: 03/28/16 12:02 Dose: 100 mls/hr Losartan Potassium (Cozaar) 50 mg PO BID [facility] Stop: 05/22/16 08:59 Last Admin: 03/28/16 16:55 Dose: 50 mg Metoprolol Tartrate (Lopressor) 50 mg PO Q6HR [facility] Stop: 05/23/16 05:59 Last Admin: 03/28/16 13:45 Dose: 50 mg Nifedipine (Procardia Xl) 90 mg PO DAILY [facility] Stop: 05/25/16 08:59 Last Admin: 03/28/16 09:54 Dose: 90 mg Risperidone (Risperdal) 0.5 mg PO BID [facility] PRN Reason: Protocol Stop: 05/24/16 16:59 Last Admin: 03/28/16 16:55 Dose: 0.5 mg Cardiovascular: Regular rate Lungs: Clear to auscultation Abdomen: Soft Assessment/Plan - Problem List Patient Problems: All Active Problems GENERALIZED WEAKNESS (Acute ~03/20/16) Diabetes mellitus (Acute) E11.9 High cholesterol (Acute) E78.0 Homeless (Acute) Z59.0 Hypertensive encephalopathy (Acute) I67.4 Severe hypertension (Acute) I10 Unstable angina (Acute) - Assessment Assessment: CHF ( systolic heart failure) Cardiomyopathy Methamphetamine abuse COPD exacerbation Obesity Elevated troponin possibly related to CHF HTN - Plan Plan: Lasix 40 BID Beta [place] Lovenox Frequent HHN Oxygen IV rocephine Solumedrol Monitor vitals Highly advised to stop cigarette and Methamphetamine use Cardiology and Pulmonary following DC Planning in progress Plan of care discussed with patient and nursing staff
[2016-03-29] MEDS: Albuterol Nebulizer 2.5mg/3mL HHN SCH (03:20)
[2016-03-29] MEDS: Budesonide 0.5 Mg/2 mL Ud HHN SCH (07:07)
[2016-03-29] MEDS: Albuterol/Ipratropium Neb 3 ML AERS HHN SCH ×4 (07:07→19:35)
[2016-03-29] MEDS: Azithromycin 500 MG in Sodium Chloride 0.9% 250 ML IV SCH (08:24)
[2016-03-29] MEDS: NIFEdipine 30 mg ER Tab PO SCH (09:03)
[2016-03-29] MEDS: Enoxaparin 40 mg/0.4 mL 0.4mL Syr SUBQ SCH (09:06)
[2016-03-29] MEDS: cefTRIAXone 1 GM in Sodium Chloride 0.9% 100 ML IV SCH (09:57)
--- NOTE | 2016-03-30 02:11 | General Progress Note ---
Subjective - Review of Systems Service Date: 03/29/16 Subjective: Patient seen and examined doing better denied any complaints Objective - Results Result Diagrams: 03/26/16 05:20 03/28/16 06:15 Recent Labs: Laboratory Last Values WBC 11.6 Th/cmm (4.8-10.8) H 03/26/16 05:20 RBC 5.74 Mil/cmm (4.30-5.70) H 03/26/16 05:20 Hgb 15.1 gm/dL (13.2-17.3) 03/26/16 05:20 Hct 46.0 % (39.0-49.0) 03/26/16 05:20 MCV 80.2 fl (80-99) 03/26/16 05:20 MCH 26.4 pg (26.0-30.0) 03/26/16 05:20 MCHC Differential 32.9 pg (28.0-36.0) 03/26/16 05:20 RDW 14.2 % (11.5-20.0) 03/26/16 05:20 Plt Count 266 Th/cmm (150-400) 03/26/16 05:20 MPV 9.4 fl 03/26/16 05:20 Neutrophils % 79.0 % (40.0-80.0) 03/22/16 05:48 Band Neutrophils % 3 % (0-10) 03/26/16 05:20 Lymphocytes % 13.4 % (20.0-50.0) L 03/22/16 05:48 Monocytes % 6.5 % (2.0-10.0) 03/22/16 05:48 Eosinophils % 0.9 % (0.0-5.0) 03/22/16 05:48 Basophils % 0.2 % (0.0-2.0) 03/22/16 05:48 Neutrophils (Manual) 72 % (40-80) 03/26/16 05:20 Lymphocytes 16 % (20-50) L 03/26/16 05:20 Monocytes 9 % (2-10) 03/26/16 05:20 Platelet Estimate ADEQUATE (NORMAL) 03/26/16 05:20 Platelet Morphology NORMAL (NORMAL) 03/23/16 07:13 RBC Morph Micro Appear NORMAL (NORMAL) 03/23/16 07:13 Specimen Source Arterial 03/26/16 09:14 Sample Site Right Radial 03/26/16 09:14 pH 7.48 (7.35-7.45) H 03/26/16 09:14 pCO2 41.0 mmHg (35.0-45.0) 03/26/16 09:14 pO2 73.0 mmHg (80.0-100.0) L 03/26/16 09:14 HCO3 30.5 mmol/L (20.0-26.0) H 03/26/16 09:14 Base Excess 6.4 mmol/L (-3.0-3.0) H 03/26/16 09:14 O2 Saturation 96.0 % (92.0-100.0) 03/26/16 09:14 Alexis Test Positive 03/26/16 09:14 Vent Rate NA 03/26/16 09:14 Inspired O2 21 03/26/16 09:14 Tidal Volume NA 03/26/16 09:14 PEEP NA 03/26/16 09:14 Pressure (ins/psv/peep) NA 03/26/16 09:14 Critical Value PING 03/26/16 09:14 Sodium 138 mEq/L (136-145) 03/28/16 06:15 Potassium 4.1 mEq/L (3.5-5.1) 03/28/16 06:15 Chloride 104 mEq/L (98-107) 03/28/16 06:15 Carbon Dioxide 29.6 mEq/L (21.0-31.0) 03/28/16 06:15 Anion Gap 8.5 (7.0-16.0) 03/28/16 06:15 BUN 32 mg/dL (7-25) H 03/28/16 06:15 Creatinine 1.5 mg/dL (0.7-1.3) H 03/28/16 06:15 Est GFR ( Amer) > 60.0 ml/min (>90) 03/28/16 06:15 Est GFR (Non-Af Amer) 51.8 ml/min 03/28/16 06:15 BUN/Creatinine Ratio 21.3 03/28/16 06:15 Glucose 127 mg/dL (70-105) H 03/28/16 06:15 Uric Acid 7.8 mg/dL (4.4-7.6) H 03/21/16 05:40 Calcium 8.6 mg/dL (8.6-10.3) 03/28/16 06:15 Magnesium 2.2 mg/dL (1.9-2.7) 03/21/16 05:40 Total Bilirubin 0.6 mg/dL (0.3-1.0) 03/25/16 05:19 Direct Bilirubin 0.20 mg/dL (0.0-0.2) 03/23/16 07:13 AST 48 U/L (13-39) H 03/25/16 05:19 ALT 101 U/L (7-52) H 03/25/16 05:19 Alkaline Phosphatase 110 U/L (34-104) H 03/25/16 05:19 Ammonia 62 umol/L (16-53) H 03/23/16 07:13 Troponin I 0.12 ng/mL (0.01-0.05) H* D 03/21/16 13:44 B-Natriuretic Peptide 507.0 pg/mL (5.0-100.0) H 03/28/16 06:15 Total Protein 6.0 gm/dL (6.0-8.3) 03/25/16 05:19 Albumin 3.5 gm/dL (4.2-5.5) L 03/25/16 05:19 Globulin 2.5 gm/dL 03/25/16 05:19 Albumin/Globulin Ratio 1.4 (1.0-1.8) 03/25/16 05:19 TSH 1.24 uIU/ml (0.34-5.60) 03/23/16 07:13 Urine Source CLEAN C 03/20/16 20:10 Urine Color YELLOW 03/20/16 20:10 Urine Clarity CLEAR (CLEAR) 03/20/16 20:10 Urine pH 5.5 03/20/16 20:10 Ur Specific [place] 1.025 (1.005-1.030) 03/20/16 20:10 Urine Protein 100 mg/dL (NEGATIVE) H 03/20/16 20:10 Urine Glucose (UA) NEGATIVE mg/dL (NEGATIVE) 03/20/16 20:10 Urine Ketones NEGATIVE mg/dL (NEGATIVE) 03/20/16 20:10 Urine Blood NEGATIVE (NEGATIVE) 03/20/16 20:10 Urine Nitrate NEGATIVE (NEGATIVE) 03/20/16 20:10 Urine Bilirubin NEGATIVE (NEGATIVE) 03/20/16 20:10 Urine Urobilinogen 0.2 E.U./dL (0.2 - 1.0) 03/20/16 20:10 Ur Leukocyte Esterase NEGATIVE (NEGATIVE) 03/20/16 20:10 Urine RBC NONE SEEN /hpf (0-5) 03/20/16 20:10 Urine WBC NONE SEEN /hpf (0-5) 03/20/16 20:10 Ur Epithelial Cells NONE SEEN /lpf (FEW) 03/20/16 20:10 Urine Bacteria NONE SEEN /hpf (NONE SEEN) 03/20/16 20:10 U Random Total Protein 41.0 mg/dL 03/22/16 12:00 Urine Collection Time 24 hours 03/22/16 12:00 Urine Total Volume 1050 ml 03/22/16 12:00 U Tot Protein 24h, Calc 430.5 mg/24 hr (0-165) H 03/22/16 12:00 Urine Opiates Screen NEGATIVE (NEGATIVE) 03/20/16 20:10 Ur Barbiturates Screen NEGATIVE (NEGATIVE) 03/20/16 20:10 Ur Phencyclidine Scrn NEGATIVE (NEGATIVE) 03/20/16 20:10 Amphetamines Screen POSITIVE (NEGATIVE) H 03/20/16 20:10 U Methamphetamines Scrn POSITIVE (NEGATIVE) H 03/20/16 20:10 U Benzodiazepines Scrn NEGATIVE (NEGATIVE) 03/20/16 20:10 U Cocaine Metab Screen NEGATIVE (NEGATIVE) 03/20/16 20:10 U Cannabinoids Screen NEGATIVE (NEGATIVE) 03/20/16 20:10 Ethyl Alcohol < 10 mg/dL (0-10) 03/20/16 17:02 - Physical Exam Vitals and I&O: Vital Signs Temp 97 F 03/29/16 20:00 Pulse 73 03/29/16 23:49 Resp 18 03/30/16 00:00 BP 159/81 03/29/16 23:49 Pulse Ox 98 03/29/16 20:00 Intake & Output 03/29/16 03/29/16 03/30/16 06:59 18:59 06:59 Intake Total 250 2100 Balance 250 2100 Intake: Intake, IV Amount 350 Azithromycin 500 mg In 250 Sodium Chloride 0.9% 250 ml @ 250 mls/hr IV Q24HR [facility] Rx#:[id number] 1 gm In 100 Sodium Chloride 0.9% 100 ml @ 100 mls/hr IV Q24H [facility] Rx#:[id number] Oral 250 1750 Other: # Voids 3 5 # Bowel Movements 0 Active Medications: Current Medications Albuterol Sulfate (Albuterol 2.5mg/3ml Neb Ud) 2.5 mg HHN Q4HRT [facility] Stop: 05/21/16 10:59 Last Admin: 03/29/16 03:20 Dose: 2.5 mg Albuterol Sulfate (Albuterol 2.5mg/3ml Neb Ud) 2.5 mg HHN Q2HRT PRN PRN Reason: Shortness of Breath Stop: 05/21/16 09:20 Last Admin: 03/22/16 10:32 Dose: 2.5 mg Albuterol/Ipratropium (Duoneb Neb) 3 ml HHN [id number] [facility] Stop: 05/21/16 18:59 Last Admin: 03/29/16 19:35 Dose: 3 ml Aspirin (Ecotrin) 81 mg PO DAILY [facility] Stop: 05/20/16 08:59 Last Admin: 03/29/16 09:05 Dose: 81 mg Budesonide (Pulmicort) 0.5 mg HHN BIDRT [facility] Stop: 05/21/16 18:59 Last Admin: 03/29/16 07:07 Dose: 0.5 mg Clonidine HCl (Catapres) 0.1 mg PO Q6H PRN PRN Reason: SBP > 160 Stop: 05/19/16 21:44 Last Admin: 03/24/16 08:02 Dose: 0.1 mg Enoxaparin Sodium (Lovenox) 40 mg SUBQ DAILY [facility] Stop: 05/25/16 08:59 Last Admin: 03/29/16 09:06 Dose: 40 mg Furosemide (Lasix) 40 mg IVP BID [facility] Stop: 05/23/16 16:59 Last Admin: 03/29/16 16:41 Dose: 40 mg Ceftriaxone Sodium 1 gm/ (Sodium Chloride) 100 mls @ 100 mls/hr IV Q24H [facility] Stop: 05/19/16 22:59 Last Infusion: 03/29/16 11:00 Dose: Infused Losartan Potassium (Cozaar) 50 mg PO BID [facility] Stop: 05/22/16 08:59 Last Admin: 03/29/16 16:41 Dose: 50 mg Metoprolol Tartrate (Lopressor) 50 mg PO Q6HR [facility] Stop: 05/23/16 05:59 Last Admin: 03/29/16 23:49 Dose: 50 mg Nifedipine (Procardia Xl) 90 mg PO DAILY [facility] Stop: 05/25/16 08:59 Last Admin: 03/29/16 09:03 Dose: 90 mg Risperidone (Risperdal) 0.5 mg PO BID [facility] PRN Reason: Protocol Stop: 05/24/16 16:59 Last Admin: 03/29/16 16:42 Dose: 0.5 mg General: Alert Cardiovascular: Regular rate Lungs: Clear to auscultation Abdomen: Soft, no Tender Assessment/Plan - Problem List Patient Problems: All Active Problems GENERALIZED WEAKNESS (Acute ~03/20/16) Diabetes mellitus (Acute) E11.9 High cholesterol (Acute) E78.0 Homeless (Acute) Z59.0 Hypertensive encephalopathy (Acute) I67.4 Severe hypertension (Acute) I10 Unstable angina (Acute) - Assessment Assessment: CHF ( systolic heart failure) Cardiomyopathy Methamphetamine abuse COPD exacerbation Obesity Elevated troponin possibly related to CHF HTN - Plan Plan: Lasix 40 BID Beta k[place] Lovenox Frequent HHN Oxygen IV rocephine Solumedrol Monitor vitals Highly advised to stop cigarette and Methamphetamine use Cardiology and Pulmonary following DC Planning in progress Plan of care discussed with patient and nursing staff
--- NOTE | 2016-03-30 06:44 | Progress Notes ---
PULMONARY PROGRESS NOTE PROBLEM LIST: 1. Acute respiratory failure, improved. 2. Chronic obstructive pulmonary disease, stable. 3. Congestive failure, improved. SYMPTOMS: Nil. Offers no specific new symptom. No coughing, wheezing or shortness of breath. PHYSICAL EXAMINATION: VITAL SIGNS: The patient's temperature is 97.5, blood pressure 123/86, saturation 98% on 2 liters. ENT: Shows no new changes. CHEST: Shows diminished air entry. No other adventitious breath sounds. HEART: Regular. EXTREMITIES: Show some decreased edema. LABORATORY DATA: Electrolytes BUN is 32, otherwise unremarkable. The patient's BNP is dropping down to 507. ASSESSMENT: The patient clinically overall doing much better, very slowly improving cardiopulmonary-bob. Still has metabolic disease suspect with obstructive sleep apnea syndrome. PLANS AND SUGGESTIONS: We will go on and continue current treatment for follow through chest x-ray, and need for O2, etc. and go from there JOB# [id number]
[2016-03-30] MEDS: Budesonide 0.5 Mg/2 mL Ud HHN SCH (07:05)
[2016-03-30] MEDS: Albuterol/Ipratropium Neb 3 ML AERS HHN SCH ×4 (07:05→19:25)
[2016-03-30 07:11] LABS: HEMATOCRIT 49.7 % (39.0-49.0); HEMOGLOBIN 16.4 gm/dL (13.2-17.3); MEAN CELL VOLUME 80.8 fl (80-99); MEAN CORPUSCULAR HEMOGLOBIN 26.7 pg (26.0-30.0); MEAN PLATELET VOLUME 9.6 fl; PLATELET COUNT 297 Th/cmm (150-400); RED BLOOD COUNT 6.15 Mil/cmm (4.30-5.70); RED CELL DISTRIBUTION WIDTH 14.3 % (11.5-20.0); WHITE BLOOD COUNT 12.2 Th/cmm (4.8-10.8)
[2016-03-30 07:38] LABS: ANION GAP 10.4 (7.0-16.0); BUN - UREA NITROGEN 29 mg/dL (7-25); BUN/CREATININE RATIO 22.3; CALCIUM SERUM 8.9 mg/dL (8.6-10.3); CARBON DIOXIDE 28.8 mEq/L (21.0-31.0); CHLORIDE 100 mEq/L (98-107); CREATININE - SERUM 1.3 mg/dL (0.7-1.3); GLUCOSE 135 mg/dL (70-105); POTASSIUM SERUM 4.2 mEq/L (3.5-5.1); SODIUM SERUM 135 mEq/L (136-145)
[2016-03-30 08:01] LABS: BAND NEUTROPHILE 1 % (0-10); EOSINOPHIL 1 % (0-5); NEUTROPHILS 78 % (40-80); PLATELET ESTIMATE ADEQUATE (NORMAL); PLATELET MORPHOLOGY NORMAL (NORMAL); TOTAL CELLS COUNTED 100
[2016-03-30] MEDS: NIFEdipine 30 mg ER Tab PO SCH (08:19)
[2016-03-30] MEDS: Enoxaparin 40 mg/0.4 mL 0.4mL Syr SUBQ SCH (08:25)
[2016-03-30 09:59] LABS: ABG SOURCE Arterial; BE(B) 2.6 mmol/L (-3.0-3.0); HCO3 27.9 mmol/L (20.0-26.0)
[2016-03-30 10:00] LABS: ALLEN TEST YES; CRITICAL VALUES REPORTED BY SH; FIO2 21
--- NOTE | 2016-03-30 10:04 | Diagnostic Imaging Report ---
Chest x-ray (2 views) HISTORY: Shortness of breath The heart is enlarged. No definite focal point parenchymal processes. No significant pleural fluid is evident. IMPRESSION: 1. Cardiomegaly 2. No focal pulmonary processes.
[2016-03-30] MEDS: cefTRIAXone 1 GM in Sodium Chloride 0.9% 100 ML IV SCH (10:41)
[2016-03-30] MEDS: Albuterol Nebulizer 2.5mg/3mL HHN SCH (19:25)
[2016-03-31] MEDS: Albuterol Nebulizer 2.5mg/3mL HHN SCH ×2 (03:40→14:53)
--- NOTE | 2016-03-31 05:21 | Progress Notes ---
PROBLEM LIST: 1. Bilateral effusion, improving. 2. Congestive heart failure. 3. Chronic obstructive pulmonary disease. 4. Recurrent psychosis. SYMPTOMS: Nil. He is quite agitated, restless, ____ and trying to hit the people. PHYSICAL EXAMINATION: GENERAL: On exam, appears to be a bit struggling, no respiratory distress. RECORDED VITAL SIGNS: Heart rate is in 60s; blood pressure, last one is 135/65; saturating 93%. CHEST: Grossly appears to be clear without any other adventitious breath sounds. LABORATORY DATA: White count is 12,200. ABG, pO2 was 60 and this is on 21% of oxygen. ASSESSMENT: The patient is clinically stable, improving except for multiple psychiatric related issues; resolved effusion, possibly infiltrate with a background of COPD, etc. PLANS AND SUGGESTIONS: We will go ahead and continue current treatment and follow through other tests. JOB# [id number]
[2016-03-31] MEDS: Budesonide 0.5 Mg/2 mL Ud HHN SCH ×2 (07:10→19:39)
[2016-03-31] MEDS: Albuterol/Ipratropium Neb 3 ML AERS HHN SCH ×3 (07:10→19:40)
[2016-03-31] MEDS: NIFEdipine 30 mg ER Tab PO SCH (09:27)
[2016-03-31] MEDS: Enoxaparin 40 mg/0.4 mL 0.4mL Syr SUBQ SCH (09:28)
[2016-03-31] MEDS: cefTRIAXone 1 GM in Sodium Chloride 0.9% 100 ML IV SCH (09:47)
--- NOTE | 2016-03-31 14:46 | General Progress Note ---
Subjective - Review of Systems Service Date: 03/30/16 Subjective: Patient seen and examined doing better denied any complaints Objective - Results Result Diagrams: 03/30/16 06:21 03/30/16 06:21 Recent Labs: Laboratory Last Values WBC 12.2 Th/cmm (4.8-10.8) H 03/30/16 06:21 RBC 6.15 Mil/cmm (4.30-5.70) H 03/30/16 06:21 Hgb 16.4 gm/dL (13.2-17.3) 03/30/16 06:21 Hct 49.7 % (39.0-49.0) H 03/30/16 06:21 MCV 80.8 fl (80-99) 03/30/16 06:21 MCH 26.7 pg (26.0-30.0) 03/30/16 06:21 MCHC Differential 33.0 pg (28.0-36.0) 03/30/16 06:21 RDW 14.3 % (11.5-20.0) 03/30/16 06:21 Plt Count 297 Th/cmm (150-400) 03/30/16 06:21 MPV 9.6 fl 03/30/16 06:21 Neutrophils % 79.0 % (40.0-80.0) 03/22/16 05:48 Band Neutrophils % 1 % (0-10) 03/30/16 06:21 Lymphocytes % 13.4 % (20.0-50.0) L 03/22/16 05:48 Monocytes % 6.5 % (2.0-10.0) 03/22/16 05:48 Eosinophils % 0.9 % (0.0-5.0) 03/22/16 05:48 Basophils % 0.2 % (0.0-2.0) 03/22/16 05:48 Neutrophils (Manual) 78 % (40-80) 03/30/16 06:21 Lymphocytes 12 % (20-50) L 03/30/16 06:21 Monocytes 8 % (2-10) 03/30/16 06:21 Eosinophils 1 % (0-5) 03/30/16 06:21 Platelet Estimate ADEQUATE (NORMAL) 03/30/16 06:21 Platelet Morphology NORMAL (NORMAL) 03/30/16 06:21 RBC Morph Micro Appear NORMAL (NORMAL) 03/30/16 06:21 Specimen Source Arterial 03/30/16 09:00 Sample Site Right Radial 03/30/16 09:00 pH 7.40 (7.35-7.45) 03/30/16 09:00 pCO2 45.0 mmHg (35.0-45.0) 03/30/16 09:00 pO2 60.0 mmHg (80.0-100.0) L 03/30/16 09:00 HCO3 27.9 mmol/L (20.0-26.0) H 03/30/16 09:00 Base Excess 2.6 mmol/L (-3.0-3.0) 03/30/16 09:00 O2 Saturation 91.0 % (92.0-100.0) L 03/30/16 09:00 Alexis Test YES 03/30/16 09:00 Vent Rate NA 03/30/16 09:00 Inspired O2 21 03/30/16 09:00 Tidal Volume NA 03/30/16 09:00 PEEP NA 03/30/16 09:00 Pressure (ins/psv/peep) NA 03/30/16 09:00 Critical Value SH 03/30/16 09:00 Sodium 135 mEq/L (136-145) L 03/30/16 06:21 Potassium 4.2 mEq/L (3.5-5.1) 03/30/16 06:21 Chloride 100 mEq/L (98-107) 03/30/16 06:21 Carbon Dioxide 28.8 mEq/L (21.0-31.0) 03/30/16 06:21 Anion Gap 10.4 (7.0-16.0) 03/30/16 06:21 BUN 29 mg/dL (7-25) H 03/30/16 06:21 Creatinine 1.3 mg/dL (0.7-1.3) 03/30/16 06:21 Est GFR ( Amer) > 60.0 ml/min (>90) 03/30/16 06:21 Est GFR (Non-Af Amer) > 60.0 ml/min 03/30/16 06:21 BUN/Creatinine Ratio 22.3 03/30/16 06:21 Glucose 135 mg/dL (70-105) H 03/30/16 06:21 Uric Acid 7.8 mg/dL (4.4-7.6) H 03/21/16 05:40 Calcium 8.9 mg/dL (8.6-10.3) 03/30/16 06:21 Magnesium 2.2 mg/dL (1.9-2.7) 03/21/16 05:40 Total Bilirubin 0.6 mg/dL (0.3-1.0) 03/25/16 05:19 Direct Bilirubin 0.20 mg/dL (0.0-0.2) 03/23/16 07:13 AST 48 U/L (13-39) H 03/25/16 05:19 ALT 101 U/L (7-52) H 03/25/16 05:19 Alkaline Phosphatase 110 U/L (34-104) H 03/25/16 05:19 Ammonia 62 umol/L (16-53) H 03/23/16 07:13 Troponin I 0.12 ng/mL (0.01-0.05) H* D 03/21/16 13:44 B-Natriuretic Peptide 136.0 pg/mL (5.0-100.0) H 03/30/16 06:21 Total Protein 6.0 gm/dL (6.0-8.3) 03/25/16 05:19 Albumin 3.5 gm/dL (4.2-5.5) L 03/25/16 05:19 Globulin 2.5 gm/dL 03/25/16 05:19 Albumin/Globulin Ratio 1.4 (1.0-1.8) 03/25/16 05:19 TSH 1.24 uIU/ml (0.34-5.60) 03/23/16 07:13 Urine Source CLEAN C 03/20/16 20:10 Urine Color YELLOW 03/20/16 20:10 Urine Clarity CLEAR (CLEAR) 03/20/16 20:10 Urine pH 5.5 03/20/16 20:10 Ur Specific [place] 1.025 (1.005-1.030) 03/20/16 20:10 Urine Protein 100 mg/dL (NEGATIVE) H 03/20/16 20:10 Urine Glucose (UA) NEGATIVE mg/dL (NEGATIVE) 03/20/16 20:10 Urine Ketones NEGATIVE mg/dL (NEGATIVE) 03/20/16 20:10 Urine Blood NEGATIVE (NEGATIVE) 03/20/16 20:10 Urine Nitrate NEGATIVE (NEGATIVE) 03/20/16 20:10 Urine Bilirubin NEGATIVE (NEGATIVE) 03/20/16 20:10 Urine Urobilinogen 0.2 E.U./dL (0.2 - 1.0) 03/20/16 20:10 Ur Leukocyte Esterase NEGATIVE (NEGATIVE) 03/20/16 20:10 Urine RBC NONE SEEN /hpf (0-5) 03/20/16 20:10 Urine WBC NONE SEEN /hpf (0-5) 03/20/16 20:10 Ur Epithelial Cells NONE SEEN /lpf (FEW) 03/20/16 20:10 Urine Bacteria NONE SEEN /hpf (NONE SEEN) 03/20/16 20:10 U Random Total Protein 41.0 mg/dL 03/22/16 12:00 Urine Collection Time 24 hours 03/22/16 12:00 Urine Total Volume 1050 ml 03/22/16 12:00 U Tot Protein 24h, Calc 430.5 mg/24 hr (0-165) H 03/22/16 12:00 Urine Opiates Screen NEGATIVE (NEGATIVE) 03/20/16 20:10 Ur Barbiturates Screen NEGATIVE (NEGATIVE) 03/20/16 20:10 Ur Phencyclidine Scrn NEGATIVE (NEGATIVE) 03/20/16 20:10 Amphetamines Screen POSITIVE (NEGATIVE) H 03/20/16 20:10 U Methamphetamines Scrn POSITIVE (NEGATIVE) H 03/20/16 20:10 U Benzodiazepines Scrn NEGATIVE (NEGATIVE) 03/20/16 20:10 U Cocaine Metab Screen NEGATIVE (NEGATIVE) 03/20/16 20:10 U Cannabinoids Screen NEGATIVE (NEGATIVE) 03/20/16 20:10 Ethyl Alcohol < 10 mg/dL (0-10) 03/20/16 17:02 - Physical Exam Vitals and I&O: Vital Signs Temp 97.7 F 03/31/16 12:00 Pulse 76 03/31/16 14:40 Resp 19 03/31/16 12:00 BP 131/76 03/31/16 14:40 Pulse Ox 97 03/31/16 12:00 Intake & Output 03/30/16 03/31/16 03/31/16 18:59 06:59 18:59 Intake Total 800 200 Balance 800 200 Intake: Intake, IV Amount 100 [id number] 1 gm In 100 Sodium Chloride 0.9% 100 ml @ 100 mls/hr IV Q24H [facility] Rx#:[id number] Oral 700 200 Other: # Voids 5 3 Active Medications: Current Medications Albuterol Sulfate (Albuterol 2.5mg/3ml Neb Ud) 2.5 mg HHN Q4HRT [facility] Stop: 05/21/16 10:59 Last Admin: 03/31/16 03:40 Dose: 2.5 mg Albuterol Sulfate (Albuterol 2.5mg/3ml Neb Ud) 2.5 mg HHN Q2HRT PRN PRN Reason: Shortness of Breath Stop: 05/21/16 09:20 Last Admin: 03/22/16 10:32 Dose: 2.5 mg Albuterol/Ipratropium (Duoneb Neb) 3 ml HHN [id number] [facility] Stop: 05/21/16 18:59 Last Admin: 03/31/16 11:00 Dose: 3 ml Aspirin (Ecotrin) 81 mg PO DAILY [facility] Stop: 05/20/16 08:59 Last Admin: 03/31/16 09:30 Dose: 81 mg Budesonide (Pulmicort) 0.5 mg HHN BIDRT [facility] Stop: 05/21/16 18:59 Last Admin: 03/31/16 07:10 Dose: 0.5 mg Clonidine HCl (Catapres) 0.1 mg PO Q6H PRN PRN Reason: SBP > 160 Stop: 05/19/16 21:44 Last Admin: 03/24/16 08:02 Dose: 0.1 mg Enoxaparin Sodium (Lovenox) 40 mg SUBQ DAILY [facility] Stop: 05/25/16 08:59 Last Admin: 03/31/16 09:28 Dose: 40 mg Furosemide (Lasix) 40 mg IVP BID [facility] Stop: 05/23/16 16:59 Last Admin: 03/31/16 14:39 Dose: 40 mg Ceftriaxone Sodium 1 gm/ (Sodium Chloride) 100 mls @ 100 mls/hr IV Q24H [facility] Stop: 05/19/16 22:59 Last Admin: 03/31/16 09:47 Dose: 100 mls/hr Losartan Potassium (Cozaar) 50 mg PO BID [facility] Stop: 05/22/16 08:59 Last Admin: 03/31/16 09:27 Dose: 50 mg Metoprolol Tartrate (Lopressor) 50 mg PO Q6HR [facility] Stop: 05/23/16 05:59 Last Admin: 03/31/16 14:40 Dose: 50 mg Nifedipine (Procardia Xl) 90 mg PO DAILY [facility] Stop: 05/25/16 08:59 Last Admin: 03/31/16 09:27 Dose: 90 mg Risperidone (Risperdal) 0.5 mg PO BID [facility] PRN Reason: Protocol Stop: 05/24/16 16:59 Last Admin: 03/31/16 09:27 Dose: 0.5 mg Cardiovascular: Regular rate, Normal S1, Normal S2 Lungs: Clear to auscultation Abdomen: Soft Extremities: Other (edema better) Assessment/Plan - Problem List Patient Problems: All Active Problems GENERALIZED WEAKNESS (Acute ~03/20/16) Diabetes mellitus (Acute) E11.9 High cholesterol (Acute) E78.0 Homeless (Acute) Z59.0 Hypertensive encephalopathy (Acute) I67.4 Severe hypertension (Acute) I10 Unstable angina (Acute) - Assessment Assessment: CHF ( systolic heart failure) Cardiomyopathy Methamphetamine abuse COPD exacerbation Obesity Elevated troponin possibly related to CHF HTN - Plan Plan: Lasix 40 BID Beta kendall Lovenox Frequent HHN Oxygen IV rocephine Solumedrol Monitor vitals Highly advised to stop cigarette and Methamphetamine use Cardiology and Pulmonary following DC Planning in progress Plan of care discussed with patient and nursing staff
--- NOTE | 2016-03-31 22:08 | General Progress Note ---
Subjective - Review of Systems Service Date: 03/31/16 Subjective: Patient seen and examined afebrile denied sob or chest pain or any other complaints Objective - Results Result Diagrams: 03/30/16 06:21 03/30/16 06:21 Recent Labs: Laboratory Last Values WBC 12.2 Th/cmm (4.8-10.8) H 03/30/16 06:21 RBC 6.15 Mil/cmm (4.30-5.70) H 03/30/16 06:21 Hgb 16.4 gm/dL (13.2-17.3) 03/30/16 06:21 Hct 49.7 % (39.0-49.0) H 03/30/16 06:21 MCV 80.8 fl (80-99) 03/30/16 06:21 MCH 26.7 pg (26.0-30.0) 03/30/16 06:21 MCHC Differential 33.0 pg (28.0-36.0) 03/30/16 06:21 RDW 14.3 % (11.5-20.0) 03/30/16 06:21 Plt Count 297 Th/cmm (150-400) 03/30/16 06:21 MPV 9.6 fl 03/30/16 06:21 Neutrophils % 79.0 % (40.0-80.0) 03/22/16 05:48 Band Neutrophils % 1 % (0-10) 03/30/16 06:21 Lymphocytes % 13.4 % (20.0-50.0) L 03/22/16 05:48 Monocytes % 6.5 % (2.0-10.0) 03/22/16 05:48 Eosinophils % 0.9 % (0.0-5.0) 03/22/16 05:48 Basophils % 0.2 % (0.0-2.0) 03/22/16 05:48 Neutrophils (Manual) 78 % (40-80) 03/30/16 06:21 Lymphocytes 12 % (20-50) L 03/30/16 06:21 Monocytes 8 % (2-10) 03/30/16 06:21 Eosinophils 1 % (0-5) 03/30/16 06:21 Platelet Estimate ADEQUATE (NORMAL) 03/30/16 06:21 Platelet Morphology NORMAL (NORMAL) 03/30/16 06:21 RBC Morph Micro Appear NORMAL (NORMAL) 03/30/16 06:21 Specimen Source Arterial 03/30/16 09:00 Sample Site Right Radial 03/30/16 09:00 pH 7.40 (7.35-7.45) 03/30/16 09:00 pCO2 45.0 mmHg (35.0-45.0) 03/30/16 09:00 pO2 60.0 mmHg (80.0-100.0) L 03/30/16 09:00 HCO3 27.9 mmol/L (20.0-26.0) H 03/30/16 09:00 Base Excess 2.6 mmol/L (-3.0-3.0) 03/30/16 09:00 O2 Saturation 91.0 % (92.0-100.0) L 03/30/16 09:00 Alexis Test YES 03/30/16 09:00 Vent Rate NA 03/30/16 09:00 Inspired O2 21 03/30/16 09:00 Tidal Volume NA 03/30/16 09:00 PEEP NA 03/30/16 09:00 Pressure (ins/psv/peep) NA 03/30/16 09:00 Critical Value SH 03/30/16 09:00 Sodium 135 mEq/L (136-145) L 03/30/16 06:21 Potassium 4.2 mEq/L (3.5-5.1) 03/30/16 06:21 Chloride 100 mEq/L (98-107) 03/30/16 06:21 Carbon Dioxide 28.8 mEq/L (21.0-31.0) 03/30/16 06:21 Anion Gap 10.4 (7.0-16.0) 03/30/16 06:21 BUN 29 mg/dL (7-25) H 03/30/16 06:21 Creatinine 1.3 mg/dL (0.7-1.3) 03/30/16 06:21 Est GFR ( Amer) > 60.0 ml/min (>90) 03/30/16 06:21 Est GFR (Non-Af Amer) > 60.0 ml/min 03/30/16 06:21 BUN/Creatinine Ratio 22.3 03/30/16 06:21 Glucose 135 mg/dL (70-105) H 03/30/16 06:21 Uric Acid 7.8 mg/dL (4.4-7.6) H 03/21/16 05:40 Calcium 8.9 mg/dL (8.6-10.3) 03/30/16 06:21 Magnesium 2.2 mg/dL (1.9-2.7) 03/21/16 05:40 Total Bilirubin 0.6 mg/dL (0.3-1.0) 03/25/16 05:19 Direct Bilirubin 0.20 mg/dL (0.0-0.2) 03/23/16 07:13 AST 48 U/L (13-39) H 03/25/16 05:19 ALT 101 U/L (7-52) H 03/25/16 05:19 Alkaline Phosphatase 110 U/L (34-104) H 03/25/16 05:19 Ammonia 62 umol/L (16-53) H 03/23/16 07:13 Troponin I 0.12 ng/mL (0.01-0.05) H* D 03/21/16 13:44 B-Natriuretic Peptide 136.0 pg/mL (5.0-100.0) H 03/30/16 06:21 Total Protein 6.0 gm/dL (6.0-8.3) 03/25/16 05:19 Albumin 3.5 gm/dL (4.2-5.5) L 03/25/16 05:19 Globulin 2.5 gm/dL 03/25/16 05:19 Albumin/Globulin Ratio 1.4 (1.0-1.8) 03/25/16 05:19 TSH 1.24 uIU/ml (0.34-5.60) 03/23/16 07:13 Urine Source CLEAN C 03/20/16 20:10 Urine Color YELLOW 03/20/16 20:10 Urine Clarity CLEAR (CLEAR) 03/20/16 20:10 Urine pH 5.5 03/20/16 20:10 Ur Specific [place] 1.025 (1.005-1.030) 03/20/16 20:10 Urine Protein 100 mg/dL (NEGATIVE) H 03/20/16 20:10 Urine Glucose (UA) NEGATIVE mg/dL (NEGATIVE) 03/20/16 20:10 Urine Ketones NEGATIVE mg/dL (NEGATIVE) 03/20/16 20:10 Urine Blood NEGATIVE (NEGATIVE) 03/20/16 20:10 Urine Nitrate NEGATIVE (NEGATIVE) 03/20/16 20:10 Urine Bilirubin NEGATIVE (NEGATIVE) 03/20/16 20:10 Urine Urobilinogen 0.2 E.U./dL (0.2 - 1.0) 03/20/16 20:10 Ur Leukocyte Esterase NEGATIVE (NEGATIVE) 03/20/16 20:10 Urine RBC NONE SEEN /hpf (0-5) 03/20/16 20:10 Urine WBC NONE SEEN /hpf (0-5) 03/20/16 20:10 Ur Epithelial Cells NONE SEEN /lpf (FEW) 03/20/16 20:10 Urine Bacteria NONE SEEN /hpf (NONE SEEN) 03/20/16 20:10 U Random Total Protein 41.0 mg/dL 03/22/16 12:00 Urine Collection Time 24 hours 03/22/16 12:00 Urine Total Volume 1050 ml 03/22/16 12:00 U Tot Protein 24h, Calc 430.5 mg/24 hr (0-165) H 03/22/16 12:00 Urine Opiates Screen NEGATIVE (NEGATIVE) 03/20/16 20:10 Ur Barbiturates Screen NEGATIVE (NEGATIVE) 03/20/16 20:10 Ur Phencyclidine Scrn NEGATIVE (NEGATIVE) 03/20/16 20:10 Amphetamines Screen POSITIVE (NEGATIVE) H 03/20/16 20:10 U Methamphetamines Scrn POSITIVE (NEGATIVE) H 03/20/16 20:10 U Benzodiazepines Scrn NEGATIVE (NEGATIVE) 03/20/16 20:10 U Cocaine Metab Screen NEGATIVE (NEGATIVE) 03/20/16 20:10 U Cannabinoids Screen NEGATIVE (NEGATIVE) 03/20/16 20:10 Ethyl Alcohol < 10 mg/dL (0-10) 03/20/16 17:02 - Physical Exam Vitals and I&O: Vital Signs Temp 97.8 F 03/31/16 16:00 Pulse 86 03/31/16 20:00 Resp 18 03/31/16 20:00 BP 118/73 03/31/16 16:00 Pulse Ox 98 03/31/16 20:00 Intake & Output 03/31/16 03/31/16 04/01/16 06:59 18:59 06:59 Intake Total 200 500 Output Total 1000 Balance 200 -500 Intake: Oral 200 500 Output: Urine 1000 Other: # Voids 3 # Bowel Movements 1 Active Medications: Current Medications Albuterol Sulfate (Albuterol 2.5mg/3ml Neb Ud) 2.5 mg HHN Q2HRT PRN PRN Reason: Shortness of Breath Stop: 05/21/16 09:20 Last Admin: 03/22/16 10:32 Dose: 2.5 mg Albuterol/Ipratropium (Duoneb Neb) 3 ml HHN [id number] [facility] Stop: 05/21/16 18:59 Last Admin: 03/31/16 19:40 Dose: 3 ml Aspirin (Ecotrin) 81 mg PO DAILY [facility] Stop: 05/20/16 08:59 Last Admin: 03/31/16 09:30 Dose: 81 mg Budesonide (Pulmicort) 0.5 mg HHN BIDRT [facility] Stop: 05/21/16 18:59 Last Admin: 03/31/16 19:39 Dose: 0.5 mg Clonidine HCl (Catapres) 0.1 mg PO Q6H PRN PRN Reason: SBP > 160 Stop: 05/19/16 21:44 Last Admin: 03/24/16 08:02 Dose: 0.1 mg Enoxaparin Sodium (Lovenox) 40 mg SUBQ DAILY [facility] Stop: 05/25/16 08:59 Last Admin: 03/31/16 09:28 Dose: 40 mg Furosemide (Lasix) 40 mg IVP BID [facility] Stop: 05/23/16 16:59 Last Admin: 03/31/16 14:39 Dose: 40 mg Ceftriaxone Sodium 1 gm/ (Sodium Chloride) 100 mls @ 100 mls/hr IV Q24H [facility] Stop: 05/19/16 22:59 Last Admin: 03/31/16 09:47 Dose: 100 mls/hr Losartan Potassium (Cozaar) 50 mg PO BID [facility] Stop: 05/22/16 08:59 Last Admin: 03/31/16 09:27 Dose: 50 mg Metoprolol Tartrate (Lopressor) 50 mg PO Q6HR [facility] Stop: 05/23/16 05:59 Last Admin: 03/31/16 14:40 Dose: 50 mg Nifedipine (Procardia Xl) 90 mg PO DAILY [facility] Stop: 05/25/16 08:59 Last Admin: 03/31/16 09:27 Dose: 90 mg Risperidone (Risperdal) 0.5 mg PO BID [facility] PRN Reason: Protocol Stop: 05/24/16 16:59 Last Admin: 03/31/16 09:27 Dose: 0.5 mg Cardiovascular: Regular rate Lungs: Clear to auscultation Abdomen: Soft Extremities: no Edema Assessment/Plan - Problem List Patient Problems: All Active Problems GENERALIZED WEAKNESS (Acute ~03/20/16) Diabetes mellitus (Acute) E11.9 High cholesterol (Acute) E78.0 Homeless (Acute) Z59.0 Hypertensive encephalopathy (Acute) I67.4 Severe hypertension (Acute) I10 Unstable angina (Acute) - Assessment Assessment: CHF ( systolic heart failure) Cardiomyopathy Methamphetamine abuse COPD exacerbation Obesity Elevated troponin possibly related to CHF HTN - Plan Plan: Lasix 40 BID Beta kendall Lovenox Frequent HHN Oxygen follow up labs in am Monitor vitals Highly advised to stop cigarette and Methamphetamine use Cardiology and Pulmonary following DC Planning in progress Plan of care discussed with patient and nursing staff
--- NOTE | 2016-04-01 03:22 | Progress Notes ---
PROBLEM LIST: 1. COPD exacerbation, improved. 2. Congestive heart failure, stable, slightly better 3. Obstructive sleep apnea syndrome. SYMPTOMS: Nil. No specific new symptoms. PHYSICAL EXAMINATION: VITAL SIGNS: Temperature is 97.9, saturation 97, respirations is 19. ENT: Shows no new changes. CHEST: Shows diminished air entry with occasional rhonchi. HEART: Regular. ABG, pO2 is 61. ASSESSMENT: The patient clinically reasonably stable and improving. PLANS AND SUGGESTIONS: We will go ahead and continue current treatment. We will follow through other studies including chest x-ray in the next few days. JOB# [id number]
[2016-04-01 06:16] LABS: % BASOPHILS 0.5 % (0.0-2.0); % EOSINOPHILS 1.9 % (0.0-5.0); % LYMPHOCYTES 14.3 % (20.0-50.0); % MONOCYTES 9.5 % (2.0-10.0); % NEUTROPHILS 73.8 % (40.0-80.0); HEMOGLOBIN 16.3 gm/dL (13.2-17.3); MEAN CELL VOLUME 80.2 fl (80-99); MEAN CORPUSCULAR HEMOGLOBIN 26.7 pg (26.0-30.0); MEAN CORPUSCULAR HGB CONC 33.3 pg (28.0-36.0); MEAN PLATELET VOLUME 9.8 fl; PLATELET COUNT 273 Th/cmm (150-400); RED CELL DISTRIBUTION WIDTH 14.1 % (11.5-20.0); WHITE BLOOD COUNT 10.9 Th/cmm (4.8-10.8)
[2016-04-01 06:28] LABS: ANION GAP 12.7 (7.0-16.0); BUN - UREA NITROGEN 31 mg/dL (7-25); BUN/CREATININE RATIO 23.8; CARBON DIOXIDE 27.7 mEq/L (21.0-31.0); CHLORIDE 100 mEq/L (98-107); CREATININE - SERUM 1.3 mg/dL (0.7-1.3); GLUCOSE 139 mg/dL (70-105); POTASSIUM SERUM 4.4 mEq/L (3.5-5.1); SODIUM SERUM 136 mEq/L (136-145)
[2016-04-01] MEDS: Albuterol/Ipratropium Neb 3 ML AERS HHN SCH ×3 (07:47→15:10)
[2016-04-01] MEDS: Budesonide 0.5 Mg/2 mL Ud HHN SCH (07:47)
[2016-04-01] MEDS: NIFEdipine 30 mg ER Tab PO SCH (10:16)
[2016-04-01] MEDS: Enoxaparin 40 mg/0.4 mL 0.4mL Syr SUBQ SCH (10:17)
[2016-04-01] MEDS: cefTRIAXone 1 GM in Sodium Chloride 0.9% 100 ML IV SCH (11:34)
--- NOTE | 2016-04-01 17:38 | General Progress Note ---
Subjective - Review of Systems Service Date: 04/01/16 Subjective: Patient seen and examined afebrile denied sob or chest pain or any other complaints Objective - Results Result Diagrams: 04/01/16 05:38 04/01/16 05:38 Recent Labs: Laboratory Last Values WBC 10.9 Th/cmm (4.8-10.8) H 04/01/16 05:38 RBC 6.10 Mil/cmm (4.30-5.70) H 04/01/16 05:38 Hgb 16.3 gm/dL (13.2-17.3) 04/01/16 05:38 Hct 49.0 % (39.0-49.0) 04/01/16 05:38 MCV 80.2 fl (80-99) 04/01/16 05:38 MCH 26.7 pg (26.0-30.0) 04/01/16 05:38 MCHC Differential 33.3 pg (28.0-36.0) 04/01/16 05:38 RDW 14.1 % (11.5-20.0) 04/01/16 05:38 Plt Count 273 Th/cmm (150-400) 04/01/16 05:38 MPV 9.8 fl 04/01/16 05:38 Neutrophils % 73.8 % (40.0-80.0) 04/01/16 05:38 Band Neutrophils % 1 % (0-10) 03/30/16 06:21 Lymphocytes % 14.3 % (20.0-50.0) L 04/01/16 05:38 Monocytes % 9.5 % (2.0-10.0) 04/01/16 05:38 Eosinophils % 1.9 % (0.0-5.0) 04/01/16 05:38 Basophils % 0.5 % (0.0-2.0) 04/01/16 05:38 Neutrophils (Manual) 78 % (40-80) 03/30/16 06:21 Lymphocytes 12 % (20-50) L 03/30/16 06:21 Monocytes 8 % (2-10) 03/30/16 06:21 Eosinophils 1 % (0-5) 03/30/16 06:21 Platelet Estimate ADEQUATE (NORMAL) 03/30/16 06:21 Platelet Morphology NORMAL (NORMAL) 03/30/16 06:21 RBC Morph Micro Appear NORMAL (NORMAL) 03/30/16 06:21 Specimen Source Arterial 03/30/16 09:00 Sample Site Right Radial 03/30/16 09:00 pH 7.40 (7.35-7.45) 03/30/16 09:00 pCO2 45.0 mmHg (35.0-45.0) 03/30/16 09:00 pO2 60.0 mmHg (80.0-100.0) L 03/30/16 09:00 HCO3 27.9 mmol/L (20.0-26.0) H 03/30/16 09:00 Base Excess 2.6 mmol/L (-3.0-3.0) 03/30/16 09:00 O2 Saturation 91.0 % (92.0-100.0) L 03/30/16 09:00 Alexis Test YES 03/30/16 09:00 Vent Rate NA 03/30/16 09:00 Inspired O2 21 03/30/16 09:00 Tidal Volume NA 03/30/16 09:00 PEEP NA 03/30/16 09:00 Pressure (ins/psv/peep) NA 03/30/16 09:00 Critical Value SH 03/30/16 09:00 Sodium 136 mEq/L (136-145) 04/01/16 05:38 Potassium 4.4 mEq/L (3.5-5.1) 04/01/16 05:38 Chloride 100 mEq/L (98-107) 04/01/16 05:38 Carbon Dioxide 27.7 mEq/L (21.0-31.0) 04/01/16 05:38 Anion Gap 12.7 (7.0-16.0) 04/01/16 05:38 BUN 31 mg/dL (7-25) H 04/01/16 05:38 Creatinine 1.3 mg/dL (0.7-1.3) 04/01/16 05:38 Est GFR ( Amer) > 60.0 ml/min (>90) 04/01/16 05:38 Est GFR (Non-Af Amer) > 60.0 ml/min 04/01/16 05:38 BUN/Creatinine Ratio 23.8 04/01/16 05:38 Glucose 139 mg/dL (70-105) H 04/01/16 05:38 Uric Acid 7.8 mg/dL (4.4-7.6) H 03/21/16 05:40 Calcium 9.0 mg/dL (8.6-10.3) 04/01/16 05:38 Magnesium 2.2 mg/dL (1.9-2.7) 03/21/16 05:40 Total Bilirubin 0.6 mg/dL (0.3-1.0) 03/25/16 05:19 Direct Bilirubin 0.20 mg/dL (0.0-0.2) 03/23/16 07:13 AST 48 U/L (13-39) H 03/25/16 05:19 ALT 101 U/L (7-52) H 03/25/16 05:19 Alkaline Phosphatase 110 U/L (34-104) H 03/25/16 05:19 Ammonia 62 umol/L (16-53) H 03/23/16 07:13 Troponin I 0.12 ng/mL (0.01-0.05) H* D 03/21/16 13:44 B-Natriuretic Peptide 136.0 pg/mL (5.0-100.0) H 03/30/16 06:21 Total Protein 6.0 gm/dL (6.0-8.3) 03/25/16 05:19 Albumin 3.5 gm/dL (4.2-5.5) L 03/25/16 05:19 Globulin 2.5 gm/dL 03/25/16 05:19 Albumin/Globulin Ratio 1.4 (1.0-1.8) 03/25/16 05:19 TSH 1.24 uIU/ml (0.34-5.60) 03/23/16 07:13 Urine Source CLEAN C 03/20/16 20:10 Urine Color YELLOW 03/20/16 20:10 Urine Clarity CLEAR (CLEAR) 03/20/16 20:10 Urine pH 5.5 03/20/16 20:10 Ur Specific [place] 1.025 (1.005-1.030) 03/20/16 20:10 Urine Protein 100 mg/dL (NEGATIVE) H 03/20/16 20:10 Urine Glucose (UA) NEGATIVE mg/dL (NEGATIVE) 03/20/16 20:10 Urine Ketones NEGATIVE mg/dL (NEGATIVE) 03/20/16 20:10 Urine Blood NEGATIVE (NEGATIVE) 03/20/16 20:10 Urine Nitrate NEGATIVE (NEGATIVE) 03/20/16 20:10 Urine Bilirubin NEGATIVE (NEGATIVE) 03/20/16 20:10 Urine Urobilinogen 0.2 E.U./dL (0.2 - 1.0) 03/20/16 20:10 Ur Leukocyte Esterase NEGATIVE (NEGATIVE) 03/20/16 20:10 Urine RBC NONE SEEN /hpf (0-5) 03/20/16 20:10 Urine WBC NONE SEEN /hpf (0-5) 03/20/16 20:10 Ur Epithelial Cells NONE SEEN /lpf (FEW) 03/20/16 20:10 Urine Bacteria NONE SEEN /hpf (NONE SEEN) 03/20/16 20:10 U Random Total Protein 41.0 mg/dL 03/22/16 12:00 Urine Collection Time 24 hours 03/22/16 12:00 Urine Total Volume 1050 ml 03/22/16 12:00 U Tot Protein 24h, Calc 430.5 mg/24 hr (0-165) H 03/22/16 12:00 Urine Opiates Screen NEGATIVE (NEGATIVE) 03/20/16 20:10 Ur Barbiturates Screen NEGATIVE (NEGATIVE) 03/20/16 20:10 Ur Phencyclidine Scrn NEGATIVE (NEGATIVE) 03/20/16 20:10 Amphetamines Screen POSITIVE (NEGATIVE) H 03/20/16 20:10 U Methamphetamines Scrn POSITIVE (NEGATIVE) H 03/20/16 20:10 U Benzodiazepines Scrn NEGATIVE (NEGATIVE) 03/20/16 20:10 U Cocaine Metab Screen NEGATIVE (NEGATIVE) 03/20/16 20:10 U Cannabinoids Screen NEGATIVE (NEGATIVE) 03/20/16 20:10 Ethyl Alcohol < 10 mg/dL (0-10) 03/20/16 17:02 - Physical Exam Vitals and I&O: Vital Signs Temp 98.0 F 04/01/16 16:00 Pulse 69 04/01/16 17:04 Resp 17 04/01/16 16:00 BP 134/80 04/01/16 17:04 Pulse Ox 98 04/01/16 16:00 Intake & Output 03/31/16 04/01/16 04/01/16 18:59 06:59 18:59 Intake Total 100 700 100 Output Total 1000 Balance 100 -300 100 Intake: Intake, IV Amount 100 100 [id number] 1 gm In 100 100 Sodium Chloride 0.9% 100 ml @ 100 mls/hr IV Q24H [facility] Rx#:[id number] Oral 700 Output: Urine 1000 Other: # Voids 2 # Bowel Movements 1 Active Medications: Current Medications Albuterol Sulfate (Albuterol 2.5mg/3ml Neb Ud) 2.5 mg HHN Q2HRT PRN PRN Reason: Shortness of Breath Stop: 05/21/16 09:20 Last Admin: 03/22/16 10:32 Dose: 2.5 mg Albuterol/Ipratropium (Duoneb Neb) 3 ml HHN [id number] [facility] Stop: 05/21/16 18:59 Last Admin: 04/01/16 15:10 Dose: 3 ml Aspirin (Ecotrin) 81 mg PO DAILY [facility] Stop: 05/20/16 08:59 Last Admin: 04/01/16 10:14 Dose: 81 mg Budesonide (Pulmicort) 0.5 mg HHN BIDRT [facility] Stop: 05/21/16 18:59 Last Admin: 04/01/16 07:47 Dose: 0.5 mg Clonidine HCl (Catapres) 0.1 mg PO Q6H PRN PRN Reason: SBP > 160 Stop: 05/19/16 21:44 Last Admin: 03/24/16 08:02 Dose: 0.1 mg Enoxaparin Sodium (Lovenox) 40 mg SUBQ DAILY [facility] Stop: 05/25/16 08:59 Last Admin: 04/01/16 10:17 Dose: 40 mg Furosemide (Lasix) 40 mg IVP BID [facility] Stop: 05/23/16 16:59 Last Admin: 04/01/16 17:04 Dose: 40 mg Ceftriaxone Sodium 1 gm/ (Sodium Chloride) 100 mls @ 100 mls/hr IV Q24H [facility] Stop: 05/19/16 22:59 Last Infusion: 04/01/16 16:20 Dose: Infused Losartan Potassium (Cozaar) 50 mg PO BID [facility] Stop: 05/22/16 08:59 Last Admin: 04/01/16 17:04 Dose: 50 mg Metoprolol Tartrate (Lopressor) 50 mg PO Q6HR [facility] Stop: 05/23/16 05:59 Last Admin: 04/01/16 11:41 Dose: 50 mg Nifedipine (Procardia Xl) 90 mg PO DAILY [facility] Stop: 05/25/16 08:59 Last Admin: 04/01/16 10:16 Dose: 90 mg Risperidone (Risperdal) 0.5 mg PO BID [facility] PRN Reason: Protocol Stop: 05/24/16 16:59 Last Admin: 04/01/16 17:05 Dose: 0.5 mg Cardiovascular: Normal S1, Normal S2 Lungs: Clear to auscultation Abdomen: Soft, no Tender Assessment/Plan - Problem List Patient Problems: All Active Problems GENERALIZED WEAKNESS (Acute ~03/20/16) Diabetes mellitus (Acute) E11.9 High cholesterol (Acute) E78.0 Homeless (Acute) Z59.0 Hypertensive encephalopathy (Acute) I67.4 Severe hypertension (Acute) I10 Unstable angina (Acute) - Assessment Assessment: CHF ( systolic heart failure) Cardiomyopathy Methamphetamine abuse COPD exacerbation Obesity Elevated troponin possibly related to CHF HTN - Plan Plan: Patient much better Labs reviewed better DC home today Scripts given Follow up with [facility] clinic in 1-2 weeks advised. Pt aware DC plan discussed with nursing staff
--- NOTE | 2016-04-02 03:33 | Progress Notes ---
PROBLEM LIST: 1. Congestive heart failure, improving. 2. COPD, stable. 3. Obstructive sleep apnea syndrome, stable clinically. SYMPTOMS: Nil, feeling okay, offers no specific new symptoms. PHYSICAL EXAMINATION: VITAL SIGNS: Temperature is 98, respiration is 12 and saturation 97 on room air. ENT: Shows no new changes. CHEST: Shows diminished air entry with occasional rhonchi. HEART: Regular. LABORATORY DATA: The patient's white count is 10.9 and hemoglobin 6.3. Electrolytes are okay with BUN of 31. ASSESSMENT: The patient clinically reasonably stable, improving. PLANS AND SUGGESTIONS: We will go ahead and continue current treatment. Follow up on chest x-ray tomorrow, etc., and go from there. JOB# [id number]
--- NOTE | 2016-05-29 02:19 | Discharge Summary ---
DATE OF DISCHARGE: 04/01/2016 FINAL DIAGNOSES: 1. Congestive heart failure exacerbation. 2. Systolic heart failure. 3. Cardiomyopathy. 4. Methamphetamine abuse. 5. Chronic obstructive pulmonary disease exacerbation. 6. Obesity. 7. Elevated troponin secondary to congestive heart failure. 8. Hypertension. 9. Noncompliance. 10. Chronic smoker. 11. Generalized debility. 12. Obesity. HOSPITAL COURSE: This is a 55-year-old male who was admitted for evaluation of the shortness of breath, diagnosed with CHF exacerbation/systolic heart failure. The patient was noticed to have severe COPD due to the patient's chronic smoking. Cardiology/Pulmonology consult for bronchodilators. The patient had bronchodilators, oxygen support, and diuresis. The patient was given Rocephin, Zithromax, metoprolol, aspirin, losartan, and IV Solu-Medrol. The patient was also given inhaled corticosteroid. The patient's Solu-Medrol was subsequently tapered. The patient's vital signs were closely monitored. Social service was also contacted because of the patient's homelessness. After clinical improvement with the agreement of specialists, we will discharge the patient home with the outpatient's primary MD and Speciality followup. DISCHARGE CONDITION: Stable. DISCHARGE MEDICATIONS: Please see medication reconciliation. DISCHARGE INSTRUCTION: Follow up with primary MD and specialist as an outpatient. JOB# [id number]
== END 2016-04-01 18:30 | disposition home or self-care (01) | DRG 194 ==
LOC: ER 15:54 → TELE 21:40
PROVIDERS: ADMIT Family Medicine; ATTEND Family Medicine
DX: I13.0 Hypertensive heart and chronic kidney disease with heart failure and stage 1 through stage 4 chronic kidney disease, or unspecified chronic kidney disease (principal); J96.00 Acute respiratory failure, unspecified whether with hypoxia or hypercapnia; N17.9 Acute kidney failure, unspecified; I50.23 Acute on chronic systolic (congestive) heart failure; E11.22 Type 2 diabetes mellitus with diabetic chronic kidney disease; I42.9 Cardiomyopathy, unspecified; E88.81 Metabolic syndrome and other insulin resistance; J44.1 Chronic obstructive pulmonary disease with (acute) exacerbation; N18.3 Chronic kidney disease, stage 3 (moderate); F15.10 Other stimulant abuse, uncomplicated; E66.9 Obesity, unspecified; Z68.36 Body mass index [BMI] 36.0-36.9, adult; I10 Essential (primary) hypertension; G47.33 Obstructive sleep apnea (adult) (pediatric); F17.210 Nicotine dependence, cigarettes, uncomplicated; F29 Unspecified psychosis not due to a substance or known physiological condition; Z91.14 Patient's other noncompliance with medication regimen; Z59.0 Homelessness
CPT/HCPCS: 36415-UA; 36600-90; 71010-TC; 71020-TC; 71250-TC; 76770-TC; 80048-TC; 80053-TC; 80320-TC; 81001-TC; 82140-TC; 82248-TC; 82803-TC; 83735-TC; 83880-TC; 84156-TC; 84443-TC; 84484-TC; 84550-TC; 85007-TC; 85025-TC; 85027-TC; 90779; 93005; 94640; 94760; J0456; J0696; J1650; J1940; J2930; J7613; Z7610